=== PATIENT | female | born 1975 | race Caucasian/White ===

== ENCOUNTER 2018-09-23 12:47 | Inpatient (IN) ==
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
[2018-09-23 13:40] LABS: Basophils % 0.2 %; Eosinophils % 0.1 %; Hematocrit 37.2 % (35.3-44.9); Hemoglobin 11.9 g/dL (11.5-15.4); Immature Granulocytes % 0.6 % (0-4); Lymphocytes # 1.3 K/mcL (0.6-4.6); Lymphocytes % 15.3 %; Mean Corpuscular Hemoglobin 27.9 pg (28.0-33.3); Mean Corpuscular Volume 87.1 fL (83.0-100.0); Mean Platelet Volume 10.3 fL (9.4-12.4); Monocytes # 0.4 K/mcL (0.0-1.3); Monocytes % 4.9 %; Neutrophils # 6.6 K/mcL (1.6-8.9); Platelet Count 193 K/mcL (140-400); Red Blood Count 4.27 M/mcL (3.82-4.97); Red Cell Distribution Width 17.5 % (11.5-14.5); Segmented Neutrophils % 78.9 %
[2018-09-23] MEDS ORDERED: 0.9 % Sodium Chloride 1,000 ML IVC ONE ×2 (13:46→14:16)
[2018-09-23 13:48] LABS: Bilirubin,Urine Negative (Negative); Blood,Urine Small (Negative); Clarity,Urine Cloudy (Clear); Color,Urine Yellow (Yellow); Glucose,Urine (UA) Normal (Normal); Ketones,Urine Negative (Negative); Leukocyte Esterase,Urine Large (Negative); Nitrite,Urine Negative (Negative); Protein,Urine 30 mg/dL (Neg-Trace); Specific Gravity,Urine 1.007 (1.010-1.025); Urobilinogen,Urine Normal (Normal)
[2018-09-23 13:49] LABS: INR 1.3; Prothrombin Time 14.9 Seconds (9.4-12.1)
[2018-09-23 13:50] LABS: Bacteria,Urine Many per hpf (None-Few); Squamous Epithelial Cell,Urine Many per lpf (None-Few); WBC,Urine TNTC per hpf (0-3)
[2018-09-23 14:03] LABS: Alanine Aminotransferase < 3 Units/L (7-52); Albumin/Globulin Ratio 0.8 (1.1-2.2); Alkaline Phosphatase 66 Units/L (34-104); Aspartate Amino Transferase 5 Units/L (13-39); BUN/Creatinine Ratio 15 (6-26); Bilirubin,Direct 0.1 mg/dL (0.0-0.2); Bilirubin,Indirect 0.5 mg/dL (0.0-1.2); Bilirubin,Total 0.6 mg/dL (0.3-1.0); Blood Urea Nitrogen 5 mg/dL (6-20); Calcium 8.2 mg/dL (8.6-10.3); Carbon Dioxide 31 mEq/L (23-29); Chloride 96 mEq/L (98-107); Glucose 169 mg/dL (70-105); Osmolality,Calculated 281 (280-300); Potassium 2.7 mEq/L (3.5-5.1); Sodium 135 mEq/L (136-145); eGFR For Non-African Americans > 60 (> 60)
[2018-09-23 14:16] LABS: Amorphous Sediment,Urine Few (Few); RBC,Urine 0-3 per hpf (0-3)
[2018-09-23] MEDS ORDERED: *HR* Promethazine 25 MG/ML VIAL IVP ONE ×2 (14:16→21:54)
[2018-09-23] MEDS ORDERED: Potassium Chloride Elixir 20 MEQ/15 ML UDC PO ONE (14:16)
[2018-09-23] MEDS ORDERED: Ibuprofen 800 MG TABLET PO ONE (14:21)
[2018-09-23] MEDS ORDERED: cefTRIAXone 1,000 MG in Water for inj. (sterile) 20 ML 10 ML IVP ONE (14:39)
--- NOTE | 2018-09-23 14:54 | Emergency Department Note ---
Disposition Clinical Impression: Osteomyelitis, Febrile illness, Decubitus ulcer of ischium, stage 4 Disposition: Admitted As Inpatient Forms: ED Satisfaction Letter General Adult HPI - General Chief complaint: ED Fever Stated complaint: fever for a couple weeks Time Seen by Provider: 09/23/18 12:54 Source: patient, EMS Mode of arrival: EMS Limitations: no limitations - History of Present Illness Pain Scale: 8 - Related Data Home Medications Medication Instructions Recorded Confirmed FLUoxetine HCl [Prozac] 40 mg PO QAM 08/11/15 12/04/16 Warfarin [Coumadin] 6 mg PO DAILY 08/11/15 12/04/16 Promethazine [Phenergan] 12.5 mg PO HS PRN 08/16/15 12/04/16 Sennosides [Senna] 17.2 mg PO DAILY 09/07/15 12/04/16 Albuterol Sulfate [Proair Hfa] 2 puff IH Q4H PRN 10/06/16 12/04/16 Cholecalciferol (Vitamin D3) 2,000 unit PO DAILY 10/06/16 12/04/16 [Vitamin D3] DiphenhydraMINE [Benadryl] 25 mg PO Q6H PRN 10/06/16 12/04/16 EPINEPHrine [Epipen] 0.3 mg IM ONCE PRN 10/06/16 12/04/16 Gabapentin [Neurontin] 600 mg PO TID 10/06/16 12/04/16 Docusate [Colace] 100 mg PO DAILY 11/30/16 12/04/16 Torsemide [Demadex] 20 mg PO BID 11/30/16 12/04/16 diazePAM [Valium] 10 mg PO TID PRN 11/30/16 12/04/16 glipiZIDE [Glipizide] 20 mg PO DAILY 11/30/16 12/04/16 Ampicillin/Sulbactam [Unasyn] 1,500 mg IVPB Q6HR 12/04/16 12/04/16 Oxycodone HCl [Oxaydo] 5 mg PO QID 01/29/17 01/29/17 Oxycodone HCl [Oxaydo] 5 mg PO QID PRN 01/29/17 01/29/17 Previous Rx's Medication Instructions Recorded Budesonide/Formoterol 80/4.5 2 puff IH BIDR inhaler 10/19/16 [Symbicort 80/4.5] Multivit/Ca/Min/Fe/FA [Thera M 1 tab PO DAILY 30 Days tablet 10/19/16 Plus] Nicotine Patch [Nicoderm] 21 mg TD DAILY 30 Days patch.td24 10/19/16 Oxybutynin [Ditropan] 5 mg PO TID 30 Days tablet 10/19/16 HYDROmorphone (PF) [Dilaudid] 0.5 mg IVP Q4HR PRN #0 syringe 10/26/16 Fluconazole [Diflucan] 150 mg PO DAILY #1 tab 10/24/17 Oxycodone HCl/Acetaminophen 1 each PO Q6HR PRN #8 tablet 10/24/17 [Percocet 5-325 mg Tablet] cephALEXin [Keflex] 500 mg PO QID 10 Days capsule 10/24/17 Allergies Allergy/AdvReac Type Severity Reaction Status Date / Time aspirin [ASA] Allergy Intermediate Nose Bleed Verified 07/21/16 20:22 ciprofloxacin [From Cipro] Allergy Hives Verified 06/26/17 12:10 fentanyl Allergy Anxiety Verified 07/21/16 20:22 furosemide [From Lasix] Allergy Cramping Verified 10/12/16 08:10 of the Muscles pregabalin [From Lyrica] Allergy Hives Verified 06/26/17 12:11 Sulfa (Sulfonamide Allergy Diarrhea Verified 07/21/16 20:22 Antibiotics) vancomycin Allergy See Verified 07/21/16 20:22 Comments metformin AdvReac See Verified 12/04/16 14:14 Comments sitagliptin [From Januvia] AdvReac See Verified 12/04/16 14:13 Comments Past Medical History - Past Medical History Medical history: Reports: diabetes, other Surgical history: Reports: other Psychiatric history: Reports: anxiety, bipolar, depression, PTSD - Social History Smoking Status: Current every day smoker Smokeless Tobacco Status: No Alcohol use: Reports: rarely Drug use: Reports: marijuana Physical Exam - General Limitations: no limitations General appearance: alert, in no apparent distress Course Vital Signs Temperature 100.8 F H 09/23/18 13:01 Pulse Rate 117 09/23/18 13:01 Respiratory Rate 18 09/23/18 13:01 Blood Pressure 132/57 09/23/18 13:01 O2 Sat by Pulse Oximetry 100 09/23/18 13:01 Temperature 100.8 F H 09/23/18 13:01 Pulse Rate 117 09/23/18 13:01 Respiratory Rate 18 09/23/18 13:01 Blood Pressure 132/57 09/23/18 13:01 O2 Sat by Pulse Oximetry 100 09/23/18 13:01 Oxygen Delivery Oxygen Delivery Room Air Medical Decision Making - Medical Records Medical records reviewed: Yes I reviewed the patient's medical records. - Lab Data Lab results reviewed: Yes I reviewed the patient's lab results. Result diagrams: 09/23/18 13:03 09/23/18 13:03 Lab Results 09/23/18 09/23/18 09/23/18 Range/Units 13: 13: 13:03 WBC 8.4 (4.3-11.1) K/mcL RBC 4.27 (3.82-4.97) M/mcL Hgb 11.9 (11.5-15.4) g/dL Hct 37.2 (35.3-44.9) % MCV 87.1 (83.0-100.0) fL MCH 27.9 L (28.0-33.3) pg MCHC 32.0 (31.6-35.5) g/dL RDW 17.5 H (11.5-14.5) % Plt Count 193 (140-400) K/mcL MPV 10.3 (9.4-12.4) fL Immature Gran % 0.6 (0-4) % Seg Neutrophils % 78.9 % Lymphocytes % 15.3 % Monocytes % 4.9 % Eosinophils % 0.1 % Basophils % 0.2 % Neutrophils # 6.6 (1.6-8.9) K/mcL Lymphocytes # 1.3 (0.6-4.6) K/mcL Monocytes # 0.4 (0.0-1.3) K/mcL Eosinophils # 0.0 (0.0-0.6) K/mcL Basophils # 0.0 (0.0-0.2) K/mcL PT 14.9 H (9.4-12.1) Seconds INR 1.3 Sodium 135 L (136-145) mEq/L Potassium 2.7 L (3.5-5.1) mEq/L Chloride 96 L (98-107) mEq/L Carbon Dioxide 31 H (23-29) mEq/L BUN 5 L (6-20) mg/dL Creatinine 0.34 L (0.60-1.20) mg/dL Est GFR ( Amer) > 60 (> 60) Est GFR (Non-Af Amer) > 60 (> 60) BUN/Creatinine Ratio 15 (6-26) Glucose 169 H (70-105) mg/dL Calculated Osmolality 281 (280-300) Lactic Acid (0.5-2.2) mmol/L Calcium 8.2 L (8.6-10.3) mg/dL Total Bilirubin 0.6 (0.3-1.0) mg/dL Direct Bilirubin 0.1 (0.0-0.2) mg/dL Indirect Bilirubin 0.5 (0.0-1.2) mg/dL AST 5 L (13-39) Units/L ALT < 3 L (7-52) Units/L Alkaline Phosphatase 66 (34-104) Units/L Serum Total Protein 7.0 (6.4-8.9) g/dL Albumin 3.0 L (3.5-5.7) g/dL Globulin 4.0 H (2.4-3.5) g/dL Albumin/Globulin Ratio 0.8 L (1.1-2.2) Urine Color (Yellow) Urine Clarity (Clear) Urine pH (5.0-8.0) pH Units Ur Specific [place] (1.010-1.025) Urine Protein (Neg-Trace) mg/dL Urine Glucose (UA) (Normal) mg/dL Urine Ketones (Negative) mg/dL Urine Blood (Negative) Urine Nitrite (Negative) Urine Bilirubin (Negative) Urine Urobilinogen (Normal) mg/dL Ur Leukocyte Esterase (Negative) Urine Microscopic RBC (0-3) per hpf Urine Microscopic WBC (0-3) per hpf Ur Squamous Epith Cells (None-Few) per lpf Amorphous Sediment (Few) Urine Bacteria (None-Few) per hpf Hyaline Casts Ur Culture Indicated? (NO) 09/23/18 09/23/18 Range/Units 13:20 13:30 WBC (4.3-11.1) K/mcL RBC (3.82-4.97) M/mcL Hgb (11.5-15.4) g/dL Hct (35.3-44.9) % MCV (83.0-100.0) fL MCH (28.0-33.3) pg MCHC (31.6-35.5) g/dL RDW (11.5-14.5) % Plt Count (140-400) K/mcL MPV (9.4-12.4) fL Immature Gran % (0-4) % Seg Neutrophils % % Lymphocytes % % Monocytes % % Eosinophils % % Basophils % % Neutrophils # (1.6-8.9) K/mcL Lymphocytes # (0.6-4.6) K/mcL Monocytes # (0.0-1.3) K/mcL Eosinophils # (0.0-0.6) K/mcL Basophils # (0.0-0.2) K/mcL PT (9.4-12.1) Seconds INR Sodium (136-145) mEq/L Potassium (3.5-5.1) mEq/L Chloride (98-107) mEq/L Carbon Dioxide (23-29) mEq/L BUN (6-20) mg/dL Creatinine (0.60-1.20) mg/dL Est GFR ( Amer) (> 60) Est GFR (Non-Af Amer) (> 60) BUN/Creatinine Ratio (6-26) Glucose (70-105) mg/dL Calculated Osmolality (280-300) Lactic Acid 1.9 (0.5-2.2) mmol/L Calcium (8.6-10.3) mg/dL Total Bilirubin (0.3-1.0) mg/dL Direct Bilirubin (0.0-0.2) mg/dL Indirect Bilirubin (0.0-1.2) mg/dL AST (13-39) Units/L ALT (7-52) Units/L Alkaline Phosphatase (34-104) Units/L Serum Total Protein (6.4-8.9) g/dL Albumin (3.5-5.7) g/dL Globulin (2.4-3.5) g/dL Albumin/Globulin Ratio (1.1-2.2) Urine Color Yellow (Yellow) Urine Clarity Cloudy A (Clear) Urine pH 8.0 (5.0-8.0) pH Units Ur Specific [place] 1.007 L (1.010-1.025) Urine Protein 30 H (Neg-Trace) mg/dL Urine Glucose (UA) Normal (Normal) mg/dL Urine Ketones Negative (Negative) mg/dL Urine Blood Small H (Negative) Urine Nitrite Negative (Negative) Urine Bilirubin Negative (Negative) Urine Urobilinogen Normal (Normal) mg/dL Ur Leukocyte Esterase Large H (Negative) Urine Microscopic RBC 0-3 (0-3) per hpf Urine Microscopic WBC TNTC H (0-3) per hpf Ur Squamous Epith Cells Many H (None-Few) per lpf Amorphous Sediment Few (Few) Urine Bacteria Many H (None-Few) per hpf Hyaline Casts Test Not Performed Ur Culture Indicated? NO. A (NO) - Radiology Data Radiology results reviewed: Yes I reviewed the patient's radiology results. Critical Care Time Critical Care Time: Yes Total Critical Care Time: 35 Attestation: 35 minutes of critical care time spent in medical management of possible sepsis, osteomyelitis, and concerns for possible rectal fistula. Attestation Statement - Attestation Attestation: I examined this patient and my medical decision-making was reviewed with the Resident Physician. I agree with the documented findings, disposition and treatment plan as described except to the extent set forth below. 43 yo F here for generalized illness. Patient has been complaining of some diarrhea and nausea as well as fevers. States she has had intermittent fevers times one month. She does have a chronic suprapubic catheter. She does have evidence of urinary tract infection which is likely chronically infected. She spiked a temp here greater than 103. Workup revealed on the CT scan is significant decubitus ulcers it appears to have caused a reactive adjacent osteomyelitis of the right acetabular and right iliac region. We have attempted to treat her fever here with Tylenol and ibuprofen. We have given her IV fluids. We will consult with or throat as well as with the hospitalist. Patient will need to be admitted. We will order some broad- spectrum antibiotics. She has no white count elevation. Normal lactate. Blood pressures are normal.
[2018-09-23] MEDS ORDERED: Piperacillin/Tazobactam 3.375 GM in 0.9 % Sodium Chloride Mini Bag 100 ML IVPB ONE (14:57)
[2018-09-23] MEDS ORDERED: Naloxone 0.4 MG/ML INJ IVP PRN (16:25)
[2018-09-23] MEDS ORDERED: D5% in Water 1,000 ML IVC PRN (16:29)
[2018-09-23] MEDS ORDERED: *HR* Dextrose 50 % in Water (Syg) 50 ML SYRINGE IVP PRN (16:29)
[2018-09-23] MEDS ORDERED: Dextrose Gel 15 GM/37.5 ML TUBE PO PRN ×2 (16:29)
[2018-09-23] MEDS ORDERED: D5% in 0.9% NACL 1,000 ML IVC SCH (16:30)
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
[2018-09-23 17:42] LABS: Estimated Average Glucose 174 mg/dl; Hemoglobin A1C 7.7 %
[2018-09-23] MEDS: DAPTOmycin 500 MG in 0.9 % Sodium Chloride 100 ML IVPB SCH (17:46)
[2018-09-23 20:21] LABS: Bilirubin,Urine Negative (Negative); Blood,Urine Moderate (Negative); Clarity,Urine Cloudy (Clear); Color,Urine Yellow (Yellow); Glucose,Urine (UA) Normal (Normal); Ketones,Urine Negative (Negative); Leukocyte Esterase,Urine Large (Negative); Nitrite,Urine Positive (Negative); Protein,Urine 30 mg/dL (Neg-Trace); Specific Gravity,Urine 1.016 (1.010-1.025); Urobilinogen,Urine Normal (Normal)
[2018-09-23] MEDS: *HR* Heparin 5,000 UNIT/ML VIAL SQ SCH (20:25)
[2018-09-23] MEDS: Insulin DETEMIR 100 UNIT/ML X5UNITS SQ SCH (20:25)
[2018-09-23 20:27] LABS: Bacteria,Urine Many per hpf (None-Few); Hyaline Casts,Urine None Seen per lpf (None-Few); RBC,Urine 15-30 per hpf (0-3); Squamous Epithelial Cell,Urine Moderate per lpf (None-Few); WBC,Urine TNTC per hpf (0-3)
[2018-09-23] MEDS: D5% in 0.9% NACL 1,000 ML IVC SCH (20:36)
[2018-09-23] MEDS: Acetaminophen 325 MG TABLET PO PRN (21:27)
[2018-09-24] MEDS: Gabapentin 400 MG CAPSULE PO SCH ×4 (01:43→20:08)
[2018-09-24] MEDS: Insulin LISPRO 300 UNITS/3 ML VIAL SQ SCH ×7 (01:45→16:08)
[2018-09-24] MEDS: Piperacillin/Tazobactam 3.375 GM in 0.9 % Sodium Chloride Mini Bag 100 ML IVPB SCH ×4 (01:46→23:35)
[2018-09-24] MEDS ORDERED: *HR* Promethazine 25 MG/ML VIAL IVP ONE (04:06)
[2018-09-24 05:16] LABS: Hematocrit 31.1 % (35.3-44.9); Mean Corpuscular HGB Conc 31.5 g/dL (31.6-35.5); Mean Corpuscular Hemoglobin 27.9 pg (28.0-33.3); Mean Corpuscular Volume 88.6 fL (83.0-100.0); Mean Platelet Volume 10.4 fL (9.4-12.4); Platelet Count 144 K/mcL (140-400); Red Blood Count 3.51 M/mcL (3.82-4.97); Red Cell Distribution Width 17.7 % (11.5-14.5)
[2018-09-24 05:17] LABS: Hemoglobin 9.8 g/dL (11.5-15.4)
[2018-09-24 05:38] LABS: BUN/Creatinine Ratio 23 (6-26); Blood Urea Nitrogen 6 mg/dL (6-20); Calcium 7.4 mg/dL (8.6-10.3); Carbon Dioxide 27 mEq/L (23-29); Chloride 107 mEq/L (98-107); Chol/HDL Ratio 7.1 (0-4.9); Cholesterol 113 mg/dL (< 200); Glucose 182 mg/dL (70-105); HDL Cholesterol 16 mg/dL (40-59); LDL Cholesterol,Calculated 68 mg/dL (0-99); Osmolality,Calculated 292 (280-300); Phosphorous 1.3 mg/dL (2.7-4.5); Potassium 3.2 mEq/L (3.5-5.1); Sodium 140 mEq/L (136-145); Triglycerides 147 mg/dL (< 150); eGFR For Non-African Americans > 60 (> 60)
[2018-09-24] MEDS: D5% in 0.9% NACL 1,000 ML IVC SCH ×3 (05:46→15:21)
[2018-09-24] MEDS: *HR* Heparin 5,000 UNIT/ML VIAL SQ SCH ×2 (05:48→17:53)
[2018-09-24] MEDS: traMADol 50 MG TABLET PO PRN ×2 (05:56→11:06)
[2018-09-24 08:27] LABS: Acinetobacter baumannii by PCR Not Detected (Not Detect); Candida albicans by PCR Not Detected (Not Detect); Candida glabrata by PCR Not Detected (Not Detect); Candida krusei by PCR Not Detected (Not Detect); Candida parapsilosis by PCR Not Detected (Not Detect); Candida tropicalis by PCR Not Detected (Not Detect); Enterobacter cloacae Cmplx PCR Not Detected (Not Detect); Enterobacteriaceae by PCR DETECTED (Not Detect); Enterococcus by PCR Not Detected (Not Detect); Escherichia coli by PCR Not Detected (Not Detect); Klebsiella oxytoca by PCR Not Detected (Not Detect); Klebsiella pneumoniae by PCR Not Detected (Not Detect); Proteus by PCR DETECTED (Not Detect); Pseudomonas aeruginosa by PCR Not Detected (Not Detect); Serratia marcescens by PCR Not Detected (Not Detect); Staphylococcus aureus by PCR Not Detected (Not Detect); Staphylococcus by PCR Not Detected (Not Detect); Streptococcus agalactiae(B)PCR Not Detected (Not Detect); Streptococcus by PCR Not Detected (Not Detect); Streptococcus pneumoniae PCR Not Detected (Not Detect); Streptococcus pyogenes (A) PCR Not Detected (Not Detect); blaKPC Carbapenem-Resist Gene Not Detected (Not Detect); mecA Methicillin-Resist Gene Not Detected (Not Detect); vanA/B Vancomycin-Resist Genes Not Detected (Not Detect)
[2018-09-24] MEDS ORDERED: *HR* Promethazine 25 MG/ML VIAL IVP STA (09:15)
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
[2018-09-24 11:24] LABS: Creatine Kinase 19 Units/L (30-223)
[2018-09-24] MEDS: Acetaminophen 325 MG TABLET PO PRN ×2 (11:34→20:18)
[2018-09-24] MEDS ORDERED: Ketorolac 30 MG/ML VIAL IVP ONE (12:25)
[2018-09-24] MEDS ORDERED: Potassium Chloride 40 MEQ, Lidocaine 1% 2 ML in D5% in Water 500 ML IVPB ONE (12:50)
[2018-09-24] MEDS: FLUoxetine 20 MG CAPSULE PO SCH (14:05)
[2018-09-24] MEDS: Multivit/Ca/Min/Fe/FA 1 TAB TABLET PO SCH (14:06)
[2018-09-24] MEDS: Zinc Sulfate 220 MG CAPSULE PO SCH (14:07)
[2018-09-24] MEDS: DAPTOmycin 500 MG in 0.9 % Sodium Chloride 100 ML IVPB SCH (16:07)
[2018-09-24] MEDS: Ascorbic Acid 500 MG TABLET PO SCH (16:08)
[2018-09-24] MEDS ORDERED: Ketorolac 30 MG/ML VIAL IVP STA (17:20)
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
[2018-09-24] MEDS ORDERED: *HR* Warfarin 5 MG TABLET PO ONE (18:00)
[2018-09-24] MEDS ORDERED: Warfarin perPT PO PRN (18:00)
[2018-09-24] MEDS: Nystatin POWDER 30 GM BOTTLE TP SCH (20:09)
[2018-09-24] MEDS: Insulin DETEMIR 100 UNIT/ML X5UNITS SQ SCH (20:39)
[2018-09-25] MEDS: traMADol 50 MG TABLET PO PRN ×3 (02:11→22:15)
[2018-09-25] MEDS: *HR* Heparin 5,000 UNIT/ML VIAL SQ SCH ×2 (04:54→17:43)
[2018-09-25 05:22] LABS: INR 1.2; Prothrombin Time 13.9 Seconds (9.4-12.1)
[2018-09-25] MEDS: D5% in 0.9% NACL 1,000 ML IVC SCH (06:26)
[2018-09-25] MEDS: Nystatin POWDER 30 GM BOTTLE TP SCH ×2 (06:33→22:15)
[2018-09-25 08:58] LABS: Basophils % 0.2 %; Eosinophils % 0.7 %; Hematocrit 33.4 % (35.3-44.9); Hemoglobin 10.5 g/dL (11.5-15.4); Immature Granulocytes % 0.5 % (0-4); Lymphocytes # 0.8 K/mcL (0.6-4.6); Lymphocytes % 13.3 %; Mean Corpuscular HGB Conc 31.4 g/dL (31.6-35.5); Mean Corpuscular Hemoglobin 27.3 pg (28.0-33.3); Mean Corpuscular Volume 86.8 fL (83.0-100.0); Mean Platelet Volume 10.9 fL (9.4-12.4); Monocytes # 0.4 K/mcL (0.0-1.3); Monocytes % 6.1 %; Neutrophils # 4.7 K/mcL (1.6-8.9); Platelet Count 160 K/mcL (140-400); Red Blood Count 3.85 M/mcL (3.82-4.97); Red Cell Distribution Width 17.8 % (11.5-14.5); Segmented Neutrophils % 79.2 %
[2018-09-25 09:16] LABS: BUN/Creatinine Ratio 19 (6-26); Blood Urea Nitrogen 5 mg/dL (6-20); Carbon Dioxide 23 mEq/L (23-29); Chloride 107 mEq/L (98-107); Glucose 139 mg/dL (70-105); Osmolality,Calculated 286 (280-300); Potassium 3.1 mEq/L (3.5-5.1); Sodium 138 mEq/L (136-145); eGFR For Non-African Americans > 60 (> 60)
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
[2018-09-25] MEDS: Insulin LISPRO 300 UNITS/3 ML VIAL SQ SCH ×6 (10:37→15:47)
[2018-09-25] MEDS: Gabapentin 400 MG CAPSULE PO SCH ×3 (10:40→22:16)
[2018-09-25] MEDS: FLUoxetine 20 MG CAPSULE PO SCH (10:41)
[2018-09-25] MEDS: Sennosides 8.6 MG TABLET PO SCH (10:41)
[2018-09-25] MEDS: Ascorbic Acid 500 MG TABLET PO SCH ×2 (10:41→17:45)
[2018-09-25] MEDS: Cholecalciferol (D-3) 1,000 UNIT TABLET PO SCH (10:42)
[2018-09-25] MEDS: Multivit/Ca/Min/Fe/FA 1 TAB TABLET PO SCH (10:42)
[2018-09-25] MEDS: Zinc Sulfate 220 MG CAPSULE PO SCH (10:42)
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
[2018-09-25] MEDS: Piperacillin/Tazobactam 3.375 GM in 0.9 % Sodium Chloride Mini Bag 100 ML IVPB SCH ×2 (11:07→17:42)
[2018-09-25 11:18] LABS: Alanine Aminotransferase 3 Units/L (7-52); Albumin 2.7 g/dL (3.5-5.7); Albumin/Globulin Ratio 0.7 (1.1-2.2); Alkaline Phosphatase 67 Units/L (34-104); Amylase 20 Units/L (29-103); Aspartate Amino Transferase 6 Units/L (13-39); Bilirubin,Direct 0.1 mg/dL (0.0-0.2); Bilirubin,Indirect 0.3 mg/dL (0.0-1.2); Bilirubin,Total 0.4 mg/dL (0.3-1.0); Globulin 3.8 g/dL (2.4-3.5); Lipase 19 Units/L (11-82); Total Protein 6.5 g/dL (6.4-8.9)
[2018-09-25] MEDS: Ketorolac 30 MG/ML VIAL IVP SCH ×2 (12:48→17:47)
[2018-09-25] MEDS ORDERED: Potassium Chloride 40 MEQ, Lidocaine 1% 2 ML in D5% in Water 500 ML IVPB ONE (13:13)
[2018-09-25] MEDS: DAPTOmycin 500 MG in 0.9 % Sodium Chloride 100 ML IVPB SCH (14:30)
[2018-09-25] MEDS: *HR* Promethazine 25 MG/ML VIAL IVP PRN (17:43)
[2018-09-25] MEDS: OXYCODONE Oral CONC 10 MG/0.5 ML ORAL.SYG SL PRN (17:44)
[2018-09-25] MEDS: Nicotine 21 MG PATCH.TD24 TD SCH (17:46)
[2018-09-25] MEDS ORDERED: *HR* Warfarin 3 MG TABLET PO ONE (18:00)
[2018-09-25 18:34] LABS: Alanine Aminotransferase < 3 Units/L (7-52); Albumin 2.5 g/dL (3.5-5.7); Albumin/Globulin Ratio 0.8 (1.1-2.2); Alkaline Phosphatase 57 Units/L (34-104); Aspartate Amino Transferase 5 Units/L (13-39); Bilirubin,Direct 0.1 mg/dL (0.0-0.2); Bilirubin,Indirect 0.2 mg/dL (0.0-1.2); Bilirubin,Total 0.3 mg/dL (0.3-1.0); Globulin 3.2 g/dL (2.4-3.5); Total Protein 5.7 g/dL (6.4-8.9)
[2018-09-25] MEDS ORDERED: Gadolinium Contrast Agent (WT Based) IV PRN (19:30)
[2018-09-25] MEDS: diazePAM 5 MG TABLET PO PRN (22:15)
[2018-09-25] MEDS: Insulin DETEMIR 100 UNIT/ML X5UNITS SQ SCH (22:16)
[2018-09-26] MEDS: Piperacillin/Tazobactam 3.375 GM in 0.9 % Sodium Chloride Mini Bag 100 ML IVPB SCH ×3 (00:06→17:20)
[2018-09-26] MEDS: Ketorolac 30 MG/ML VIAL IVP SCH ×4 (00:07→16:51)
[2018-09-26] MEDS: *HR* Promethazine 25 MG/ML VIAL IVP PRN ×2 (00:15→17:45)
[2018-09-26] MEDS: *HR* Heparin 5,000 UNIT/ML VIAL SQ SCH ×2 (06:53→16:51)
[2018-09-26 07:14] LABS: INR 1.2
[2018-09-26] MEDS: Insulin LISPRO 300 UNITS/3 ML VIAL SQ SCH ×6 (08:16→16:45)
[2018-09-26] MEDS: Sennosides 8.6 MG TABLET PO SCH (08:24)
[2018-09-26] MEDS: Cholecalciferol (D-3) 1,000 UNIT TABLET PO SCH (08:25)
[2018-09-26] MEDS: Zinc Sulfate 220 MG CAPSULE PO SCH (08:25)
[2018-09-26] MEDS: Multivit/Ca/Min/Fe/FA 1 TAB TABLET PO SCH (08:25)
[2018-09-26] MEDS: Ascorbic Acid 500 MG TABLET PO SCH ×2 (08:26→16:51)
[2018-09-26] MEDS: Gabapentin 400 MG CAPSULE PO SCH ×3 (08:48→21:09)
[2018-09-26] MEDS: FLUoxetine 20 MG CAPSULE PO SCH (08:48)
[2018-09-26] MEDS: Nicotine 21 MG PATCH.TD24 TD SCH (08:48)
[2018-09-26] MEDS: Nystatin POWDER 30 GM BOTTLE TP SCH ×2 (08:51→21:08)
[2018-09-26] MEDS: OXYCODONE Oral CONC 10 MG/0.5 ML ORAL.SYG SL PRN ×2 (09:12→21:10)
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
[2018-09-26] MEDS: *HR* Warfarin 3 MG TABLET PO SCH (16:51)
[2018-09-26] MEDS: DAPTOmycin 500 MG in 0.9 % Sodium Chloride 100 ML IVPB SCH (17:37)
[2018-09-26] MEDS: Insulin DETEMIR 100 UNIT/ML X5UNITS SQ SCH (21:09)
[2018-09-27] MEDS: Ketorolac 30 MG/ML VIAL IVP SCH ×4 (00:49→17:04)
[2018-09-27] MEDS: Piperacillin/Tazobactam 3.375 GM in 0.9 % Sodium Chloride Mini Bag 100 ML IVPB SCH ×3 (00:49→17:03)
[2018-09-27] MEDS: OXYCODONE Oral CONC 10 MG/0.5 ML ORAL.SYG SL PRN ×4 (03:19→21:36)
[2018-09-27 05:18] LABS: Basophils % 0.5 %; Eosinophils # 0.2 K/mcL (0.0-0.6); Eosinophils % 5.4 %; Hemoglobin 9.8 g/dL (11.5-15.4); Immature Granulocytes % 0.7 % (0-4); Lymphocytes # 0.7 K/mcL (0.6-4.6); Lymphocytes % 15.9 %; Mean Corpuscular HGB Conc 31.6 g/dL (31.6-35.5); Mean Corpuscular Hemoglobin 27.3 pg (28.0-33.3); Mean Corpuscular Volume 86.4 fL (83.0-100.0); Mean Platelet Volume 10.2 fL (9.4-12.4); Monocytes # 0.3 K/mcL (0.0-1.3); Monocytes % 5.8 %; Neutrophils # 3.1 K/mcL (1.6-8.9); Platelet Count 156 K/mcL (140-400); Red Blood Count 3.59 M/mcL (3.82-4.97); Red Cell Distribution Width 17.9 % (11.5-14.5); Segmented Neutrophils % 71.7 %
[2018-09-27 05:26] LABS: INR 1.4; Prothrombin Time 15.9 Seconds (9.4-12.1)
[2018-09-27 05:32] LABS: BUN/Creatinine Ratio 12 (6-26); Blood Urea Nitrogen 3 mg/dL (6-20); Calcium 7.7 mg/dL (8.6-10.3); Carbon Dioxide 25 mEq/L (23-29); Chloride 107 mEq/L (98-107); Glucose 141 mg/dL (70-105); Osmolality,Calculated 287 (280-300); Potassium 3.1 mEq/L (3.5-5.1); Sodium 139 mEq/L (136-145); eGFR For Non-African Americans > 60 (> 60)
[2018-09-27] MEDS: *HR* Promethazine 25 MG/ML VIAL IVP PRN ×3 (05:58→20:31)
[2018-09-27] MEDS: *HR* Heparin 5,000 UNIT/ML VIAL SQ SCH ×2 (05:58→17:04)
[2018-09-27] MEDS: Cholecalciferol (D-3) 1,000 UNIT TABLET PO SCH (08:36)
[2018-09-27] MEDS: Gabapentin 400 MG CAPSULE PO SCH ×3 (08:37→23:22)
[2018-09-27] MEDS: Multivit/Ca/Min/Fe/FA 1 TAB TABLET PO SCH (08:37)
[2018-09-27] MEDS: Ascorbic Acid 500 MG TABLET PO SCH ×2 (08:37→17:05)
[2018-09-27] MEDS: Zinc Sulfate 220 MG CAPSULE PO SCH (08:37)
[2018-09-27] MEDS: FLUoxetine 20 MG CAPSULE PO SCH (08:38)
[2018-09-27] MEDS: Sennosides 8.6 MG TABLET PO SCH (08:38)
[2018-09-27] MEDS: Nicotine 21 MG PATCH.TD24 TD SCH (08:38)
[2018-09-27] MEDS: Insulin LISPRO 300 UNITS/3 ML VIAL SQ SCH ×5 (08:39→17:01)
[2018-09-27] MEDS: Nystatin POWDER 30 GM BOTTLE TP SCH (08:40)
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
[2018-09-27] MEDS: DAPTOmycin 500 MG in 0.9 % Sodium Chloride 100 ML IVPB SCH (14:57)
[2018-09-27] MEDS: *HR* Warfarin 3 MG TABLET PO SCH (17:04)
[2018-09-27] MEDS ORDERED: Simethicone 80 MG TAB.CHEW PO PRN (21:19)
[2018-09-28] MEDS: Ketorolac 30 MG/ML VIAL IVP SCH ×4 (00:05→18:14)
[2018-09-28] MEDS: Piperacillin/Tazobactam 3.375 GM in 0.9 % Sodium Chloride Mini Bag 100 ML IVPB SCH ×3 (00:06→18:03)
[2018-09-28] MEDS: OXYCODONE Oral CONC 10 MG/0.5 ML ORAL.SYG SL PRN ×3 (03:50→18:15)
[2018-09-28] MEDS: *HR* Promethazine 25 MG/ML VIAL IVP PRN ×2 (03:51→09:26)
[2018-09-28] MEDS: Nystatin POWDER 30 GM BOTTLE TP SCH ×3 (04:22→20:28)
[2018-09-28 05:58] LABS: INR 1.6; Prothrombin Time 18.2 Seconds (9.4-12.1)
[2018-09-28] MEDS: *HR* Heparin 5,000 UNIT/ML VIAL SQ SCH ×2 (06:02→18:14)
[2018-09-28] MEDS: FLUoxetine 20 MG CAPSULE PO SCH (09:01)
[2018-09-28] MEDS: Zinc Sulfate 220 MG CAPSULE PO SCH (09:01)
[2018-09-28] MEDS: Gabapentin 400 MG CAPSULE PO SCH ×3 (09:01→20:28)
[2018-09-28] MEDS: Cholecalciferol (D-3) 1,000 UNIT TABLET PO SCH (09:02)
[2018-09-28] MEDS: Insulin LISPRO 300 UNITS/3 ML VIAL SQ SCH ×3 (09:02→20:29)
[2018-09-28] MEDS: Sennosides 8.6 MG TABLET PO SCH (09:02)
[2018-09-28] MEDS: Multivit/Ca/Min/Fe/FA 1 TAB TABLET PO SCH (09:02)
[2018-09-28] MEDS: Nicotine 21 MG PATCH.TD24 TD SCH (09:03)
[2018-09-28] MEDS: Ascorbic Acid 500 MG TABLET PO SCH ×2 (09:10→18:14)
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
[2018-09-28 12:35] LABS: Basophils % 0.3 %; Eosinophils # 0.2 K/mcL (0.0-0.6); Eosinophils % 5.4 %; Hemoglobin 9.6 g/dL (11.5-15.4); Immature Granulocytes % 1.1 % (0-4); Lymphocytes # 0.8 K/mcL (0.6-4.6); Lymphocytes % 22.3 %; Mean Corpuscular Hemoglobin 27.6 pg (28.0-33.3); Mean Corpuscular Volume 86.2 fL (83.0-100.0); Mean Platelet Volume 9.8 fL (9.4-12.4); Monocytes # 0.3 K/mcL (0.0-1.3); Monocytes % 7.2 %; Neutrophils # 2.4 K/mcL (1.6-8.9); Platelet Count 156 K/mcL (140-400); Red Blood Count 3.48 M/mcL (3.82-4.97); Red Cell Distribution Width 17.7 % (11.5-14.5); Segmented Neutrophils % 63.7 %
[2018-09-28 12:54] LABS: BUN/Creatinine Ratio 9 (6-26); Blood Urea Nitrogen 3 mg/dL (6-20); Calcium 7.7 mg/dL (8.6-10.3); Carbon Dioxide 27 mEq/L (23-29); Chloride 106 mEq/L (98-107); Glucose 176 mg/dL (70-105); Osmolality,Calculated 289 (280-300); Potassium 2.8 mEq/L (3.5-5.1); Sodium 139 mEq/L (136-145); eGFR For Non-African Americans > 60 (> 60)
[2018-09-28] MEDS: DAPTOmycin 500 MG in 0.9 % Sodium Chloride 100 ML IVPB SCH (18:09)
[2018-09-28] MEDS: *HR* Warfarin 3 MG TABLET PO SCH (18:14)
[2018-09-28] MEDS: traMADol 50 MG TABLET PO PRN (20:28)
[2018-09-29] MEDS: Ketorolac 30 MG/ML VIAL IVP SCH ×4 (00:06→18:32)
[2018-09-29] MEDS: Piperacillin/Tazobactam 3.375 GM in 0.9 % Sodium Chloride Mini Bag 100 ML IVPB SCH ×3 (00:07→16:22)
[2018-09-29] MEDS: *HR* Promethazine 25 MG/ML VIAL IVP PRN ×2 (01:10→20:14)
[2018-09-29] MEDS: OXYCODONE Oral CONC 10 MG/0.5 ML ORAL.SYG SL PRN ×4 (02:50→23:01)
[2018-09-29 04:42] LABS: INR 2.1; Prothrombin Time 23.4 Seconds (9.4-12.1)
[2018-09-29] MEDS: *HR* Heparin 5,000 UNIT/ML VIAL SQ SCH ×2 (05:58→17:33)
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
[2018-09-29] MEDS: Nicotine 21 MG PATCH.TD24 TD SCH (09:10)
[2018-09-29] MEDS: Gabapentin 400 MG CAPSULE PO SCH ×3 (09:10→20:14)
[2018-09-29] MEDS: FLUoxetine 20 MG CAPSULE PO SCH (09:10)
[2018-09-29] MEDS: Insulin LISPRO 300 UNITS/3 ML VIAL SQ SCH ×3 (09:13→17:33)
[2018-09-29 09:17] LABS: Basophils % 0.2 %; Eosinophils # 0.3 K/mcL (0.0-0.6); Eosinophils % 5.9 %; Hematocrit 32.1 % (35.3-44.9); Immature Granulocytes % 1.4 % (0-4); Lymphocytes # 1.2 K/mcL (0.6-4.6); Lymphocytes % 27.7 %; Mean Corpuscular HGB Conc 31.2 g/dL (31.6-35.5); Mean Corpuscular Hemoglobin 27.5 pg (28.0-33.3); Mean Corpuscular Volume 88.2 fL (83.0-100.0); Mean Platelet Volume 10.2 fL (9.4-12.4); Monocytes # 0.3 K/mcL (0.0-1.3); Monocytes % 6.9 %; Neutrophils # 2.4 K/mcL (1.6-8.9); Platelet Count 187 K/mcL (140-400); Red Blood Count 3.64 M/mcL (3.82-4.97); Red Cell Distribution Width 18.3 % (11.5-14.5); Segmented Neutrophils % 57.9 %
[2018-09-29] MEDS: Nystatin POWDER 30 GM BOTTLE TP SCH ×2 (09:20→20:14)
[2018-09-29] MEDS: Ascorbic Acid 500 MG TABLET PO SCH ×2 (09:20→16:27)
[2018-09-29] MEDS: Zinc Sulfate 220 MG CAPSULE PO SCH (09:21)
[2018-09-29] MEDS: Cholecalciferol (D-3) 1,000 UNIT TABLET PO SCH (09:21)
[2018-09-29] MEDS: Multivit/Ca/Min/Fe/FA 1 TAB TABLET PO SCH (09:21)
[2018-09-29] MEDS: Sennosides 8.6 MG TABLET PO SCH (09:21)
[2018-09-29 09:35] LABS: BUN/Creatinine Ratio 17 (6-26); Blood Urea Nitrogen 6 mg/dL (6-20); Calcium 8.2 mg/dL (8.6-10.3); Carbon Dioxide 29 mEq/L (23-29); Chloride 108 mEq/L (98-107); Glucose 134 mg/dL (70-105); Osmolality,Calculated 296 (280-300); Potassium 2.7 mEq/L (3.5-5.1); Sodium 143 mEq/L (136-145); eGFR For Non-African Americans > 60 (> 60)
[2018-09-29 09:41] LABS: Platelet Estimate Normal (Normal); Reactive Lymphocytes Present (Not Present)
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
[2018-09-29] MEDS: DAPTOmycin 500 MG in 0.9 % Sodium Chloride 100 ML IVPB SCH (16:27)
[2018-09-29] MEDS ORDERED: *HR* Warfarin 3 MG TABLET PO ONE (18:00)
[2018-09-29 22:58] LABS: BUN/Creatinine Ratio 23 (6-26); Blood Urea Nitrogen 6 mg/dL (6-20); Calcium 8.4 mg/dL (8.6-10.3); Carbon Dioxide 26 mEq/L (23-29); Chloride 106 mEq/L (98-107); Glucose 170 mg/dL (70-105); Osmolality,Calculated 292 (280-300); Potassium 2.4 mEq/L (3.5-5.1); Sodium 140 mEq/L (136-145); eGFR For Non-African Americans > 60 (> 60)
[2018-09-29] MEDS ORDERED: Potassium Chloride 40 MEQ, Lidocaine 1% 2 ML in D5% in Water 500 ML IVPB ONE (23:02)
[2018-09-30] MEDS: Ketorolac 30 MG/ML VIAL IVP SCH ×3 (00:39→12:26)
[2018-09-30] MEDS: Piperacillin/Tazobactam 3.375 GM in 0.9 % Sodium Chloride Mini Bag 100 ML IVPB SCH ×3 (00:39→16:07)
[2018-09-30 04:11] LABS: Basophils % 0.4 %; Eosinophils # 0.2 K/mcL (0.0-0.6); Eosinophils % 4.2 %; Hematocrit 29.5 % (35.3-44.9); Hemoglobin 9.5 g/dL (11.5-15.4); Immature Granulocytes % 0.9 % (0-4); Lymphocytes # 1.8 K/mcL (0.6-4.6); Lymphocytes % 40.2 %; Mean Corpuscular HGB Conc 32.2 g/dL (31.6-35.5); Mean Corpuscular Hemoglobin 27.9 pg (28.0-33.3); Mean Corpuscular Volume 86.8 fL (83.0-100.0); Mean Platelet Volume 10.2 fL (9.4-12.4); Monocytes # 0.3 K/mcL (0.0-1.3); Monocytes % 7.1 %; Neutrophils # 2.1 K/mcL (1.6-8.9); Platelet Count 199 K/mcL (140-400); Red Cell Distribution Width 18.3 % (11.5-14.5); Segmented Neutrophils % 47.2 %
[2018-09-30 04:21] LABS: Prothrombin Time 23.1 Seconds (9.4-12.1)
[2018-09-30 04:30] LABS: Platelet Estimate Normal (Normal)
[2018-09-30 04:31] LABS: Anisocytosis 1+ (Not Present); Hypochromasia Present (Not Present); Reactive Lymphocytes Present (Not Present)
[2018-09-30 04:33] LABS: BUN/Creatinine Ratio 22 (6-26); Blood Urea Nitrogen 5 mg/dL (6-20); Calcium 8.2 mg/dL (8.6-10.3); Carbon Dioxide 26 mEq/L (23-29); Chloride 108 mEq/L (98-107); Glucose 147 mg/dL (70-105); Osmolality,Calculated 294 (280-300); Potassium 3.1 mEq/L (3.5-5.1); Sodium 142 mEq/L (136-145); eGFR For Non-African Americans > 60 (> 60)
[2018-09-30] MEDS: *HR* Heparin 5,000 UNIT/ML VIAL SQ SCH (05:54)
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
[2018-09-30 09:30] LABS: VBG Ionized Calcium 1.16 mmol/L (1.15-1.35)
[2018-09-30] MEDS: Insulin LISPRO 300 UNITS/3 ML VIAL SQ SCH ×3 (10:16→17:02)
[2018-09-30] MEDS: Sennosides 8.6 MG TABLET PO SCH (10:32)
[2018-09-30] MEDS: Cholecalciferol (D-3) 1,000 UNIT TABLET PO SCH (10:32)
[2018-09-30] MEDS: FLUoxetine 20 MG CAPSULE PO SCH (10:33)
[2018-09-30] MEDS: Ascorbic Acid 500 MG TABLET PO SCH ×2 (10:33→16:07)
[2018-09-30] MEDS: Zinc Sulfate 220 MG CAPSULE PO SCH (10:33)
[2018-09-30] MEDS: Gabapentin 400 MG CAPSULE PO SCH ×3 (10:33→21:41)
[2018-09-30] MEDS: Nicotine 21 MG PATCH.TD24 TD SCH (10:34)
[2018-09-30] MEDS: Multivit/Ca/Min/Fe/FA 1 TAB TABLET PO SCH (10:38)
[2018-09-30] MEDS: OXYCODONE Oral CONC 10 MG/0.5 ML ORAL.SYG SL PRN ×2 (10:45→21:48)
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
--- NOTE | 2018-09-30 11:34 | IR Progress Note ---
Vital Signs: Vital Signs/O2 Sat, Most Current Temp Pulse Resp BP Pulse Ox 97.6 F 78 15 125/76 97 09/30/18 06:47 09/30/18 06:47 09/30/18 06:47 09/30/18 06:47 09/30/18 06:47 Recent Labs: Lab Results 09/30/18 09/30/18 09/29/18 03:50 03:50 22:28 WBC 4.5 RBC 3.40 L Hgb 9.5 L Hct 29.5 L MCV 86.8 MCH 27.9 L MCHC 32.2 RDW 18.3 H Plt Count 199 MPV 10.2 Neutrophils # 2.1 Lymphocytes # 1.8 Monocytes # 0.3 Eosinophils # 0.2 Basophils # 0.0 Sodium 142 140 Potassium 3.1 L D 2.4 L* Chloride 108 H 106 Carbon Dioxide 26 26 BUN 5 L 6 Creatinine 0.23 L 0.26 L Est GFR ( Amer) > 60 > 60 Est GFR (Non-Af Amer) > 60 > 60 BUN/Creatinine Ratio 22 23 Glucose 147 H 170 H Lactic Acid Calcium 8.2 L 8.4 L 09/29/18 09/29/18 09/28/18 08:38 08:38 12:26 WBC 4.2 L RBC 3.64 L Hgb 10.0 L Hct 32.1 L MCV 88.2 MCH 27.5 L MCHC 31.2 L RDW 18.3 H Plt Count 187 MPV 10.2 Neutrophils # 2.4 Lymphocytes # 1.2 Monocytes # 0.3 Eosinophils # 0.3 Basophils # 0.0 Sodium 143 139 Potassium 2.7 L 2.8 L Chloride 108 H 106 Carbon Dioxide 29 27 BUN 6 3 L Creatinine 0.36 L 0.35 L Est GFR ( Amer) > 60 > 60 Est GFR (Non-Af Amer) > 60 > 60 BUN/Creatinine Ratio 17 9 Glucose 134 H 176 H Lactic Acid Calcium 8.2 L 7.7 L 09/28/18 09/27/18 09/27/18 12:26 21:43 21:37 WBC 3.7 L RBC 3.48 L Hgb 9.6 L Hct 30.0 L MCV 86.2 MCH 27.6 L MCHC 32.0 RDW 17.7 H Plt Count 156 MPV 9.8 Neutrophils # 2.4 Lymphocytes # 0.8 Monocytes # 0.3 Eosinophils # 0.2 Basophils # 0.0 Sodium Potassium 3.1 L Chloride Carbon Dioxide BUN Creatinine Est GFR ( Amer) Est GFR (Non-Af Amer) BUN/Creatinine Ratio Glucose Lactic Acid 0.8 Calcium Assessment and Plan Pt referred for biopsy of sacrum/left pelvis for osteomyelitis. Unfortunately, the CT scanner is still down. Hopefully, the scanner will be up by tomorrow and can proceed. Will need to correct INR to around 1.5. Discussed with Dr Daley.
[2018-09-30] MEDS: DAPTOmycin 500 MG in 0.9 % Sodium Chloride 100 ML IVPB SCH (15:17)
[2018-09-30] MEDS: Nystatin POWDER 30 GM BOTTLE TP SCH (15:18)
[2018-09-30] MEDS: *HR* Promethazine 25 MG/ML VIAL IVP PRN (16:07)
[2018-09-30] MEDS ORDERED: *HR* Phytonadione 5 MG TABLET PO ONE (20:16)
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
[2018-09-30] MEDS: traMADol 50 MG TABLET PO PRN (23:18)
[2018-10-01] MEDS ORDERED: *HR* OxyCODONE Immed Rel 5 MG TABLET PO ONE (00:58)
[2018-10-01] MEDS: Piperacillin/Tazobactam 3.375 GM in 0.9 % Sodium Chloride Mini Bag 100 ML IVPB SCH ×3 (01:22→17:24)
[2018-10-01] MEDS ORDERED: traMADol 50 MG TABLET PO ONE (03:59)
[2018-10-01] MEDS: Nystatin POWDER 30 GM BOTTLE TP SCH ×2 (05:04→08:26)
[2018-10-01 06:17] LABS: INR 1.7
[2018-10-01] MEDS: *HR* OxyCODONE Immed Rel 5 MG TABLET PO PRN ×3 (07:37→21:34)
[2018-10-01 08:22] LABS: Hematocrit 29.3 % (35.3-44.9); Hemoglobin 9.3 g/dL (11.5-15.4); Mean Corpuscular HGB Conc 31.7 g/dL (31.6-35.5); Mean Corpuscular Hemoglobin 27.5 pg (28.0-33.3); Mean Corpuscular Volume 86.7 fL (83.0-100.0); Mean Platelet Volume 9.7 fL (9.4-12.4); Platelet Count 218 K/mcL (140-400); Red Blood Count 3.38 M/mcL (3.82-4.97); Red Cell Distribution Width 18.6 % (11.5-14.5)
[2018-10-01] MEDS: Sennosides 8.6 MG TABLET PO SCH (08:23)
[2018-10-01] MEDS: Gabapentin 400 MG CAPSULE PO SCH ×3 (08:23→21:33)
[2018-10-01] MEDS: Nicotine 21 MG PATCH.TD24 TD SCH (08:23)
[2018-10-01] MEDS: Ascorbic Acid 500 MG TABLET PO SCH ×2 (08:24→17:24)
[2018-10-01] MEDS: FLUoxetine 20 MG CAPSULE PO SCH (08:24)
[2018-10-01] MEDS: Cholecalciferol (D-3) 1,000 UNIT TABLET PO SCH (08:25)
[2018-10-01] MEDS: Multivit/Ca/Min/Fe/FA 1 TAB TABLET PO SCH (08:25)
[2018-10-01] MEDS: Zinc Sulfate 220 MG CAPSULE PO SCH (08:25)
[2018-10-01] MEDS: Insulin LISPRO 300 UNITS/3 ML VIAL SQ SCH ×3 (08:27→17:28)
[2018-10-01 08:42] LABS: BUN/Creatinine Ratio 15 (6-26); Blood Urea Nitrogen 5 mg/dL (6-20); Calcium 7.8 mg/dL (8.6-10.3); Carbon Dioxide 27 mEq/L (23-29); Chloride 106 mEq/L (98-107); Glucose 169 mg/dL (70-105); Magnesium 1.6 mg/dL (1.6-2.6); Osmolality,Calculated 293 (280-300); Phosphorous 2.9 mg/dL (2.7-4.5); Potassium 3.5 mEq/L (3.5-5.1); Sodium 141 mEq/L (136-145); eGFR For Non-African Americans > 60 (> 60)
[2018-10-01] MEDS ORDERED: 0.9 % Sodium Chloride 500 ML ONE (09:40)
[2018-10-01] MEDS ORDERED: *HR* FentaNYL (PF) 100 MCG/2 ML VIAL IVP ONE (10:29)
[2018-10-01] MEDS ORDERED: *HR* Midazolam HCl 2 MG/2 ML VIAL IVP ONE (10:29)
[2018-10-01] MEDS ORDERED: *HR* Midazolam HCl 2 MG/2 ML VIAL ONE (10:31)
[2018-10-01] MEDS ORDERED: *HR* FentaNYL (PF) 100 MCG/2 ML VIAL ONE (10:31)
--- NOTE | 2018-10-01 10:34 | Pre-Sedation Evaluation ---
Pre-sedation evaluation - Pre-sedation checklist Procedure: bone biopsy Recent Vitals: Last Vital Signs Temp 98.0 F 10/01/18 07:02 Pulse 90 10/01/18 07:02 Resp 16 09/30/18 20:02 BP 125/73 10/01/18 07:02 Pulse Ox 98 10/01/18 07:02 H&P (including ROS) documented in medical record: Yes Previous reaction to sedatives/anesthetics: Yes; explain in comment Dietary Status: NPO after Midnight Dentition: No loose teeth or bridges Possible difficult airway: No ASA Classification *see protocol: CLASS II-Mild systemic disease, CLASS III- Severe systemic disease Plan of Care: Pt appropriate candidate for procedure/moderate/conscious sedation, Risks/benefits of procedure/sedation discussed w/ patient/family
--- NOTE | 2018-10-01 11:09 | IR Procedure Note ---
Date of procedure: 10/01/18 Consent Obtained: Verbal consent, Written consent Timeout: Correct patient and procedure verified, Correct site verified, Time out performed, Skin prep completed Local anesthetic: Lidocaine 1% Indications: osteomyelitis pelvic bones Procedure Performed: bone biopsy and aspirate Was there an clinical laboratory assistant present: No Site/Technique: left iliac bone Results/Findings: 2 cores and 5 cc aspirate obtained Estimated blood loss (cc): 0 Complications: None; Tolerated procedure well Post Procedure Treatment Plan: followup path Specimen: as above
[2018-10-01] MEDS: traMADol 50 MG TABLET PO PRN (11:52)
--- NOTE | 2018-10-01 12:48 | Internal Med Progress Note ---
Hospitalist Progress Note - Encounter Date of Encounter: 10/01/18 Time of Encounter: 12:46 - Subjective Interval History: Patient seen and evaluated at bedside. she reports feeling better, but recalls that she is still having pain in her back and would like her pain medications adjusted. she denies chest pain, abdominal pain, nausea or vomiting. but reports that she is still having watery stool. reports that the urinary catheter is again leaking. - Exam Vitals: Temp Pulse Resp BP Pulse Ox 97.5 F L 87 15 122/70 96 10/01/18 12:10 10/01/18 12:10 10/01/18 10:59 10/01/18 12:10 10/01/18 12:10 Exam: Vitals: reviewed. General: In mild distress due to back pain Head: atraumatic, normocephalic, Eye: normal appearance, PERRL, no scleral icterus, no conjunctival injection ENT: mucous membranes moist, normal external ear exam Respiratory: Good respiratory effort. Clear to auscultation bilaterally, no wheezing, rales or crackles. Cardiovascular: RRR, normal s1 and s2, No rubs, gallops, or murmors. Abdomen: Bowel sounds present normoactive x-4 quadrants. generalized tenderness to superficial palpation. Suprapubic catheter in place. Musculoskeletal: paraplegia. Unstageable sacral decubitus ulcer. Unstageable ulcer in the right heel. Neuro: Alert and oriented x4. Psych: Patient's affect is normal - Assessment and Plan (1) Osteomyelitis Current Visit: Yes Status: Acute Assessment and Plan: MR/MR pelvis wo/w con IMPRESSION: 1. Chronic bone marrow edema in the proximal remnant sacrum and bilateral posterior iliac bones without significant change from 01/08/2018. Mild bone marrow edema in the left posterior ischium and acetabulum improved from 01/08/2018. Findings likely reflect chronic or acute on chronic osteomyelitis. 2. Chronic erosion of the right posterior ischium unchanged from 01/08/2018. No associated bone marrow edema to suggest acute osteomyelitis. No new areas of osteomyelitis. 3. Large chronic midline and bilateral ischial decubitus ulcers. The midline ulceration includes a sinus tract contacting the posterior aspect of the rectum without a drainable fluid collection identified Plan Bone biopsy done, will follow report ID consulted patient on Daptomycin 500mg/IV daily and Piperacillin/Tazobactam 3.375mg/IV Q8HRs length of antibiotics coverage pending on bone biopsy report. (2) Sepsis Current Visit: Yes Status: Resolved Assessment and Plan: Septic picture has resolved. Patient hemodynamically stable. Afebrile, non- tachycardic Plan of care as above. (3) Decubitus ulcer of coccygeal region, stage 4 Current Visit: No Status: Chronic Assessment and Plan: Wound care has been consulted. Pain control with oxycodone 10 mg by mouth every 6 hours when necessary, and tramadol 50 mg by mouth every 6 hours when necessary Hold senna, as patient is having watery diarrhea. (4) Right foot ulcer Current Visit: No Status: Chronic Assessment and Plan: plan of care as above. (5) Paraplegia Current Visit: No Status: Chronic Assessment and Plan: Daily PT/OT. (6) Type 2 diabetes mellitus Current Visit: No Status: Chronic Assessment and Plan: Blood sugar has been well controlled. Continue lispro medium dose sliding scale before meals Carb controlled diet. Will add Levemir 5 unit HS (7) UTI (urinary tract infection) Current Visit: No Status: Acute Assessment and Plan: Continue Pipperacillin/tazobactam 3.375mg/IV Q8HR ID recommendations appreciated. (8) Neurogenic bladder Current Visit: No Status: Chronic Assessment and Plan: s/p catheter replacement. patient reports still having urine leakage Will call Urology for evaluation. (9) Bacteremia Current Visit: Yes Status: Resolved Assessment and Plan: Blood cultures on this 09/23/18 grew proteus mirabilis. repeated blood culture: No growth final report (10) History of DVT (deep vein thrombosis) Current Visit: No Status: Chronic Assessment and Plan: On warfarin, per pharmacy dosing. DVT Prophylaxis: Patient is on warfarin. Due to history of DVT. - Summary of Assessment and Plan Summary of Assessment and Plan: Patient to remain in the hospital s/p bone biopsy. Pending result for outpatient antibiotics coverage length - Time Spent with Patient Total time spent is greater than 50% in coordination of care (as documented) at patient's floor/unit and/or counseling patient: Greater than 35 minutes (45) Plan of Care Discussed with: patient (And the nurse.) Internal Medicine: Result - Labs CBC & Chem 7: 10/01/18 07:58 10/01/18 07:58 Labs: Short CBC 10/01/18 Range/Units 07:58 WBC 6.0 (4.3-11.1) K/mcL Hgb 9.3 L (11.5-15.4) g/dL Hct 29.3 L (35.3-44.9) % Plt Count 218 (140-400) K/mcL BMP 10/01/18 07:58 Sodium 141 Potassium 3.5 Chloride 106 Carbon Dioxide 27 BUN 5 L Creatinine 0.33 L Glucose 169 H Calcium 7.8 L - ABG Interpretation ABG results: PT/INR, D-dimer PT 19.0 Seconds (9.4-12.1) H 10/01/18 05:11 Consult Discharge Plan - Plan Referrals: Everton Lew [Primary Care Provider] - (1) Osteomyelitis Qualifiers: Osteomyelitis type: unspecified type Osteomyelitis location: femur Laterality: right Qualified Code(s): M86.9 - Osteomyelitis, unspecified (2) Sepsis Qualifiers: Sepsis type: sepsis due to unspecified organism Qualified Code(s): A41.9 - Sepsis, unspecified organism (4) Right foot ulcer Qualifiers: Non-pressure ulcer stage: unspecified non-pressure ulcer stage Qualified Code(s): L97.519 - Non-pressure chronic ulcer of other part of right foot with unspecified severity (6) Type 2 diabetes mellitus Qualifiers: Diabetes mellitus rn long term care insulin use: unspecified mcfp insulin use status Diabetes mellitus complication status: with unspecified complications Qualified Code(s): E11.8 - Type 2 diabetes mellitus with unspecified complications (7) UTI (urinary tract infection) Qualifiers: Urinary tract infection type: catheter-associated UTI Indwelling urinary catheter type: unspecified Encounter type: sequela Qualified Code(s): T83.511S - Infection and inflammatory reaction due to indwelling urethral catheter, sequela; N39.0 - Urinary tract infection, site not specified
[2018-10-01] MEDS: DAPTOmycin 500 MG in 0.9 % Sodium Chloride 100 ML IVPB SCH (15:28)
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
[2018-10-01] MEDS ORDERED: *HR* Warfarin 3 MG TABLET PO ONE (18:00)
[2018-10-01] MEDS ORDERED: Insulin DETEMIR 100 UNIT/ML X5UNITS SQ SCH (21:00)
[2018-10-02] MEDS: diazePAM 5 MG TABLET PO PRN (00:52)
[2018-10-02] MEDS: traMADol 50 MG TABLET PO PRN ×3 (00:52→21:01)
[2018-10-02] MEDS: Piperacillin/Tazobactam 3.375 GM in 0.9 % Sodium Chloride Mini Bag 100 ML IVPB SCH ×3 (01:59→21:02)
[2018-10-02 04:22] LABS: Basophils % 0.3 %; Eosinophils # 0.2 K/mcL (0.0-0.6); Eosinophils % 3.3 %; Hematocrit 28.8 % (35.3-44.9); Hemoglobin 8.8 g/dL (11.5-15.4); Immature Granulocytes % 0.9 % (0-4); Lymphocytes # 1.8 K/mcL (0.6-4.6); Lymphocytes % 27.4 %; Mean Corpuscular HGB Conc 30.6 g/dL (31.6-35.5); Mean Corpuscular Hemoglobin 26.6 pg (28.0-33.3); Mean Platelet Volume 9.5 fL (9.4-12.4); Monocytes # 0.4 K/mcL (0.0-1.3); Monocytes % 6.2 %; Platelet Count 215 K/mcL (140-400); Red Blood Count 3.31 M/mcL (3.82-4.97); Red Cell Distribution Width 18.9 % (11.5-14.5); Segmented Neutrophils % 61.9 %
[2018-10-02 04:26] LABS: INR 1.3; Prothrombin Time 14.2 Seconds (9.4-12.1)
[2018-10-02 04:38] LABS: BUN/Creatinine Ratio 25 (6-26); Blood Urea Nitrogen 6 mg/dL (6-20); Carbon Dioxide 27 mEq/L (23-29); Chloride 105 mEq/L (98-107); Glucose 195 mg/dL (70-105); Magnesium 1.6 mg/dL (1.6-2.6); Osmolality,Calculated 287 (280-300); Phosphorous 2.5 mg/dL (2.7-4.5); Potassium 2.9 mEq/L (3.5-5.1); Sodium 137 mEq/L (136-145); eGFR For Non-African Americans > 60 (> 60)
[2018-10-02] MEDS: *HR* OxyCODONE Immed Rel 5 MG TABLET PO PRN ×3 (09:54→23:50)
[2018-10-02] MEDS: Multivit/Ca/Min/Fe/FA 1 TAB TABLET PO SCH (10:35)
[2018-10-02] MEDS: Gabapentin 400 MG CAPSULE PO SCH ×3 (10:36→21:01)
[2018-10-02] MEDS: Ascorbic Acid 500 MG TABLET PO SCH ×2 (10:36→17:18)
[2018-10-02] MEDS: Cholecalciferol (D-3) 1,000 UNIT TABLET PO SCH (10:36)
[2018-10-02] MEDS: FLUoxetine 20 MG CAPSULE PO SCH (10:36)
[2018-10-02] MEDS: Zinc Sulfate 220 MG CAPSULE PO SCH (10:36)
[2018-10-02] MEDS: Nicotine 21 MG PATCH.TD24 TD SCH (10:37)
[2018-10-02] MEDS: Insulin LISPRO 300 UNITS/3 ML VIAL SQ SCH ×3 (10:50→17:27)
[2018-10-02] MEDS: Nystatin POWDER 30 GM BOTTLE TP SCH ×3 (10:50→21:13)
[2018-10-02] MEDS ORDERED: Potassium Chloride 30 MEQ, Lidocaine 1% 2 ML in D5% in Water 500 ML IVPB ONE (11:32)
--- NOTE | 2018-10-02 13:00 | Internal Med Progress Note ---
Hospitalist Progress Note - Encounter Date of Encounter: 10/02/18 Time of Encounter: 12:59 - Subjective Interval History: I've seen and evaluated the patient at bedside. She reports that after the bone biopsy the pain in her back has increased. Denies shortness of breath, abdominal pain, nausea or vomiting. - Exam Vitals: Temp Pulse Resp BP Pulse Ox 98.1 F 96 18 107/64 94 10/02/18 10:37 10/02/18 10:37 10/02/18 10:37 10/02/18 10:37 10/02/18 10:37 Exam: Vitals: reviewed. General: reports back pain ENT: mucous membranes moist, normal external ear exam Respiratory: Good respiratory effort. Clear to auscultation bilaterally, no wheezing, rales or crackles. Cardiovascular: RRR, normal s1 and s2, No rubs, gallops, or murmors. Abdomen: NABS x-4 quadrants. generalized tenderness to superficial palpation. Suprapubic catheter in place. colostomy bag with brown liquid stool. Musculoskeletal: paraplegia. Unstageable sacral decubitus ulcer. Unstageable ulcer in the right heel. Neuro: Alert and oriented x4. Psych: Patient's affect is normal - Assessment and Plan (1) Osteomyelitis Current Visit: Yes Status: Acute Assessment and Plan: s/p bone biopsy yesterday. Patient on daptomycin 500mg/IV Q24HRs and Piperacillin/tazobactam 3.375mg/IV Q8HRs as per ID recommendations preliminary bone biopsy report: Bacteria None observed. will follow final report. ID recommendations appreciated. (2) Sepsis Current Visit: Yes Status: Resolved Assessment and Plan: sepsis resolved. plan of care as above. (3) Decubitus ulcer of coccygeal region, stage 4 Current Visit: No Status: Chronic Assessment and Plan: wound care as per wound care nurse recommendations Pain control with oxycodone 10 mg by mouth every 6 hours And tramadol 50 mg by mouth every 4 when necessary (4) Right foot ulcer Current Visit: No Status: Chronic Assessment and Plan: plan of care as per wound care recommendations patient on broad spectrum IV antibiotics. (5) Paraplegia Current Visit: No Status: Chronic Assessment and Plan: Pt/Ot consulted (6) Type 2 diabetes mellitus Current Visit: No Status: Chronic Assessment and Plan: blood sugar sub-optimally controlled increase levemir to 5 units BID Continue lispro (dose sliding scale before meals Carb controlled diet. (7) UTI (urinary tract infection) Current Visit: No Status: Acute Assessment and Plan: Complicated UTI. Patient has been on broad spectrum antibiotics for the past 9 days. (8) Neurogenic bladder Current Visit: No Status: Chronic Assessment and Plan: Urology contacted as patient reports that the Urinary catheter continues to leak. (9) Bacteremia Current Visit: Yes Status: Resolved (10) History of DVT (deep vein thrombosis) Current Visit: No Status: Chronic Assessment and Plan: On warfarin per pharmacy dosing if INR not therapeutic tomorrow will add heparin drip as a bridge. (11) Hypokalemia Current Visit: No Status: Acute Assessment and Plan: Possible secondary to GI loss. Electrolytes being replaced Repeat BMP 1 hour post electrolyte replacement. Magnesium, and phosphorus level in the morning. DVT Prophylaxis: anticoagulated on warfarin due to Hx of A.fib - Summary of Assessment and Plan Summary of Assessment and Plan: Patient to remain in the hospital due to Osteomyelitis s/p bone biopsy. Pending biopsy report. - Time Spent with Patient Total time spent is greater than 50% in coordination of care (as documented) at patient's floor/unit and/or counseling patient: Greater than 35 minutes (45) Plan of Care Discussed with: patient (and the nurse.) Internal Medicine: Result - Labs CBC & Chem 7: 10/02/18 04:04 10/02/18 04:04 Labs: Short CBC 10/02/18 Range/Units 04:04 WBC 6.5 (4.3-11.1) K/mcL Hgb 8.8 L (11.5-15.4) g/dL Hct 28.8 L (35.3-44.9) % Plt Count 215 (140-400) K/mcL Neutrophils # 4.0 (1.6-8.9) K/mcL BMP 10/02/18 04:04 Sodium 137 Potassium 2.9 L Chloride 105 Carbon Dioxide 27 BUN 6 Creatinine 0.24 L Glucose 195 H Calcium 8.0 L - ABG Interpretation ABG results: PT/INR, D-dimer PT 14.2 Seconds (9.4-12.1) H 10/02/18 04:04 - Impressions Impressions Bone Biopsy CT 10/01/18 00:00 IMPRESSION: Successful CT guided core biopsy of left iliac bone. D/ / Maurisio Blancas / Maurisio Blancas Interpreting Provider: Maurisio Blancas Consult Discharge Plan - Plan Referrals: Everton Lew [Primary Care Provider] - (office will call patient at home with appointment date and time) (1) Osteomyelitis Qualifiers: Osteomyelitis type: unspecified type Osteomyelitis location: femur Laterality: right Qualified Code(s): M86.9 - Osteomyelitis, unspecified (2) Sepsis Qualifiers: Sepsis type: sepsis due to unspecified organism Qualified Code(s): A41.9 - Sepsis, unspecified organism (4) Right foot ulcer Qualifiers: Non-pressure ulcer stage: unspecified non-pressure ulcer stage Qualified Code(s): L97.519 - Non-pressure chronic ulcer of other part of right foot with unspecified severity (6) Type 2 diabetes mellitus Qualifiers: Diabetes mellitus long-term insulin use: unspecified management assistant insulin use status Diabetes mellitus complication status: with unspecified complications Qualified Code(s): E11.8 - Type 2 diabetes mellitus with unspecified complications (7) UTI (urinary tract infection) Qualifiers: Urinary tract infection type: catheter-associated UTI Indwelling urinary catheter type: unspecified Encounter type: sequela Qualified Code(s): T83.511S - Infection and inflammatory reaction due to indwelling urethral catheter, sequela; N39.0 - Urinary tract infection, site not specified
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
[2018-10-02 17:09] LABS: BUN/Creatinine Ratio 17 (6-26); Blood Urea Nitrogen 8 mg/dL (6-20); Calcium 7.8 mg/dL (8.6-10.3); Carbon Dioxide 26 mEq/L (23-29); Chloride 105 mEq/L (98-107); Glucose 229 mg/dL (70-105); Osmolality,Calculated 290 (280-300); Potassium 3.2 mEq/L (3.5-5.1); Sodium 137 mEq/L (136-145); eGFR For Non-African Americans > 60 (> 60)
[2018-10-02] MEDS: DAPTOmycin 500 MG in 0.9 % Sodium Chloride 100 ML IVPB SCH (17:38)
[2018-10-02] MEDS ORDERED: *HR* Warfarin 7.5 MG TABLET PO ONE (18:00)
[2018-10-02] MEDS: Insulin DETEMIR 100 UNIT/ML X5UNITS SQ SCH (21:12)
[2018-10-03] MEDS: *HR* Promethazine 25 MG/ML VIAL IVP PRN (02:09)
[2018-10-03] MEDS: Piperacillin/Tazobactam 3.375 GM in 0.9 % Sodium Chloride Mini Bag 100 ML IVPB SCH ×4 (02:09→18:13)
[2018-10-03 07:32] LABS: INR 1.3; Prothrombin Time 15.1 Seconds (9.4-12.1)
[2018-10-03] MEDS: *HR* OxyCODONE Immed Rel 5 MG TABLET PO PRN ×3 (07:34→17:37)
[2018-10-03 08:08] LABS: BUN/Creatinine Ratio 27 (6-26); Blood Urea Nitrogen 7 mg/dL (6-20); Calcium 8.2 mg/dL (8.6-10.3); Carbon Dioxide 26 mEq/L (23-29); Chloride 105 mEq/L (98-107); Glucose 154 mg/dL (70-105); Magnesium 1.8 mg/dL (1.6-2.6); Osmolality,Calculated 285 (280-300); Phosphorous 3.5 mg/dL (2.7-4.5); Potassium 3.6 mEq/L (3.5-5.1); Sodium 137 mEq/L (136-145); eGFR For Non-African Americans > 60 (> 60)
[2018-10-03] MEDS: FLUoxetine 20 MG CAPSULE PO SCH (10:22)
[2018-10-03] MEDS: Multivit/Ca/Min/Fe/FA 1 TAB TABLET PO SCH (10:22)
[2018-10-03] MEDS: Zinc Sulfate 220 MG CAPSULE PO SCH (10:23)
[2018-10-03] MEDS: Ascorbic Acid 500 MG TABLET PO SCH ×2 (10:23→17:37)
[2018-10-03] MEDS: Cholecalciferol (D-3) 1,000 UNIT TABLET PO SCH (10:23)
[2018-10-03] MEDS: Gabapentin 400 MG CAPSULE PO SCH ×3 (10:24→21:09)
[2018-10-03] MEDS: Nicotine 21 MG PATCH.TD24 TD SCH (10:25)
[2018-10-03] MEDS: Insulin LISPRO 300 UNITS/3 ML VIAL SQ SCH ×3 (10:43→18:09)
[2018-10-03] MEDS: traMADol 50 MG TABLET PO PRN (10:49)
[2018-10-03] MEDS: Insulin DETEMIR 100 UNIT/ML X5UNITS SQ SCH ×2 (10:50→21:09)
[2018-10-03] MEDS: Nystatin POWDER 30 GM BOTTLE TP SCH ×2 (10:54→21:23)
[2018-10-03] MEDS ORDERED: *HR* Heparin 5,000 UNIT/ML VIAL IVP PRN ×2 (11:27)
[2018-10-03] MEDS ORDERED: *HR* Heparin 5,000 UNIT/ML VIAL IVP ONE (11:27)
--- NOTE | 2018-10-03 11:33 | Internal Med Progress Note ---
Hospitalist Progress Note - Encounter Date of Encounter: 10/03/18 Time of Encounter: 11:29 - Subjective Interval History: I've seen and evaluated the patient at bedside. Patient reports that her back pain is not well controlled. Denies shortness of breath, nausea, vomiting or abdominal pain. Reports that her urinary catheter is no longer leaking. - Exam Vitals: Temp Pulse Resp BP Pulse Ox 98.2 F 86 14 110/71 97 10/03/18 07:06 10/03/18 07:06 10/03/18 05:12 10/03/18 07:06 10/03/18 05:12 Exam: Vitals: reviewed. General: In mild distress due to back pain ENT: mucous membranes moist, normal external ear exam Respiratory:Clear to auscultation bilaterally, no wheezing, rales or crackles. Cardiovascular: RRR, normal s1 and s2, No rubs, gallops, or murmors. Abdomen: NABS x-4 quadrants. generalized tenderness to superficial palpation. Suprapubic catheter in place. colostomy bag with liquid stool. Musculoskeletal: paraplegia. Unstageable sacral decubitus ulcer. Unstageable ulcer in the right heel. Neuro: Awake, AOx4. CN II-XII intact. Psych: Patient's affect is normal - Assessment and Plan (1) Osteomyelitis Current Visit: Yes Status: Acute Assessment and Plan: s/p bone biopsy. Bone biopsy specimen no growth, pending final report Patient on broad spectrum IV antibiotics per ID recommendations On daptomycin 500 mg IV daily, and PEEP. And Piperacillin/tazobactam 3.375mg/IV Q8HRs (2) Right foot ulcer Current Visit: No Status: Chronic Assessment and Plan: Plan of care as above. (3) Decubitus ulcer of coccygeal region, stage 4 Current Visit: No Status: Chronic Assessment and Plan: Wound culture growing gram-negative rods Patient on Piperacillin/tazobactam 3.375mg/IV Q8HRs Wound care as per wound care nurse (4) Paraplegia Current Visit: No Status: Chronic Assessment and Plan: PT/OT has been consulted. (5) Type 2 diabetes mellitus Current Visit: No Status: Chronic Assessment and Plan: Blood sugar is well controlled. Continue with carb controlled diet, Levemir 5 units twice a day On lispro medium dose sliding scale before meals. (6) UTI (urinary tract infection) Current Visit: No Status: Acute Assessment and Plan: patient has been on broad spectrum antibiotics for the past 10 days. (7) Neurogenic bladder Current Visit: No Status: Chronic Assessment and Plan: s/p catheter replacement. as per patient leakage has resolved. (8) Bacteremia Current Visit: Yes Status: Resolved (9) History of DVT (deep vein thrombosis) Current Visit: No Status: Chronic Assessment and Plan: Patient on warfarin with a Sub-therapeutic INR continue warfarin per pharmacy dosing will bridge while in patient with heparin drip will repeat venous dupplex of the lower extr patient reported she was diagnosed with a DVT more than 3 years ago. (10) Hypokalemia Current Visit: No Status: Resolved (11) Sepsis Current Visit: Yes Status: Resolved DVT Prophylaxis: Started on heparin drip, due to history of DVT on warfarin and a nontherapeutic INR. - Summary of Assessment and Plan Summary of Assessment and Plan: Patient to remain in the hospital pending bone biopsy result. - Time Spent with Patient Total time spent is greater than 50% in coordination of care (as documented) at patient's floor/unit and/or counseling patient: Greater than 35 minutes (41) Plan of Care Discussed with: patient (And the nurse.) Internal Medicine: Result - Labs CBC & Chem 7: 10/02/18 04:04 10/03/18 07:11 Labs: BMP 10/02/18 10/03/18 16:35 07:11 Sodium 137 137 Potassium 3.2 L 3.6 Chloride 105 105 Carbon Dioxide 26 26 BUN 8 7 Creatinine 0.46 L 0.26 L Glucose 229 H 154 H Calcium 7.8 L 8.2 L - ABG Interpretation ABG results: PT/INR, D-dimer PT 15.1 Seconds (9.4-12.1) H 10/03/18 07:11 Consult Discharge Plan - Plan Referrals: Everton Lew [Primary Care Provider] - (office will call patient at home with appointment date and time) (1) Osteomyelitis Qualifiers: Osteomyelitis type: unspecified type Osteomyelitis location: femur Laterality: right Qualified Code(s): M86.9 - Osteomyelitis, unspecified (2) Right foot ulcer Qualifiers: Non-pressure ulcer stage: unspecified non-pressure ulcer stage Qualified Code (s): L97.519 - Non-pressure chronic ulcer of other part of right foot with unspecified severity (5) Type 2 diabetes mellitus Qualifiers: Diabetes mellitus terminal operator insulin use: unspecified detention insulin use status Diabetes mellitus complication status: with unspecified complications Qualified Code(s): E11.8 - Type 2 diabetes mellitus with unspecified complications (6) UTI (urinary tract infection) Qualifiers: Urinary tract infection type: catheter-associated UTI Indwelling urinary catheter type: unspecified Encounter type: sequela Qualified Code(s): T83.511S - Infection and inflammatory reaction due to indwelling urethral catheter, sequela; N39.0 - Urinary tract infection, site not specified (11) Sepsis Qualifiers: Sepsis type: sepsis due to unspecified organism Qualified Code(s): A41.9 - Sepsis, unspecified organism
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
[2018-10-03 17:30] LABS: Hematocrit 29.4 % (35.3-44.9); Hemoglobin 9.1 g/dL (11.5-15.4); Mean Corpuscular Hemoglobin 27.6 pg (28.0-33.3); Mean Corpuscular Volume 89.1 fL (83.0-100.0); Mean Platelet Volume 9.9 fL (9.4-12.4); Platelet Count 213 K/mcL (140-400); Red Cell Distribution Width 19.4 % (11.5-14.5)
[2018-10-03 17:38] LABS: INR 1.3; Prothrombin Time 14.3 Seconds (9.4-12.1)
[2018-10-03] MEDS ORDERED: *HR* Warfarin 7.5 MG TABLET PO ONE (18:00)
[2018-10-03] MEDS: Heparin 25,000 UNIT/500 ML D5W 25,000 UNIT/500 ML BAG IVC SCH (18:07)
[2018-10-03] MEDS: *HR* HYDROcodone/Acet 5/325 mg TABLET PO PRN (21:09)
[2018-10-04] MEDS: Piperacillin/Tazobactam 3.375 GM in 0.9 % Sodium Chloride Mini Bag 100 ML IVPB SCH ×2 (02:21→09:34)
[2018-10-04] MEDS: *HR* OxyCODONE Immed Rel 5 MG TABLET PO PRN ×3 (02:31→16:51)
[2018-10-04 05:09] LABS: Basophils % 0.1 %; Eosinophils # 0.2 K/mcL (0.0-0.6); Eosinophils % 3.2 %; Hematocrit 29.3 % (35.3-44.9); Immature Granulocytes % 1.3 % (0-4); Lymphocytes # 1.6 K/mcL (0.6-4.6); Lymphocytes % 23.8 %; Mean Corpuscular HGB Conc 30.7 g/dL (31.6-35.5); Mean Corpuscular Hemoglobin 27.7 pg (28.0-33.3); Mean Corpuscular Volume 90.2 fL (83.0-100.0); Monocytes # 0.4 K/mcL (0.0-1.3); Monocytes % 5.1 %; Neutrophils # 4.5 K/mcL (1.6-8.9); Platelet Count 203 K/mcL (140-400); Red Blood Count 3.25 M/mcL (3.82-4.97); Red Cell Distribution Width 19.5 % (11.5-14.5); Segmented Neutrophils % 66.5 %
[2018-10-04 05:16] LABS: INR 1.5; Prothrombin Time 16.7 Seconds (9.4-12.1)
[2018-10-04 05:27] LABS: BUN/Creatinine Ratio 29 (6-26); Blood Urea Nitrogen 7 mg/dL (6-20); Calcium 8.4 mg/dL (8.6-10.3); Carbon Dioxide 29 mEq/L (23-29); Chloride 103 mEq/L (98-107); Glucose 170 mg/dL (70-105); Magnesium 1.8 mg/dL (1.6-2.6); Osmolality,Calculated 286 (280-300); Phosphorous 3.5 mg/dL (2.7-4.5); Potassium 3.8 mEq/L (3.5-5.1); Sodium 137 mEq/L (136-145); eGFR For Non-African Americans > 60 (> 60)
[2018-10-04] MEDS: *HR* HYDROcodone/Acet 5/325 mg TABLET PO PRN ×2 (06:31→14:52)
[2018-10-04] MEDS: Nicotine 21 MG PATCH.TD24 TD SCH (09:20)
[2018-10-04] MEDS: Insulin LISPRO 300 UNITS/3 ML VIAL SQ SCH ×3 (09:21→18:09)
[2018-10-04] MEDS: Insulin DETEMIR 100 UNIT/ML X5UNITS SQ SCH (09:22)
[2018-10-04] MEDS: Nystatin POWDER 30 GM BOTTLE TP SCH (09:39)
[2018-10-04] MEDS: FLUoxetine 20 MG CAPSULE PO SCH (09:39)
[2018-10-04] MEDS: Multivit/Ca/Min/Fe/FA 1 TAB TABLET PO SCH (09:39)
[2018-10-04] MEDS: Gabapentin 400 MG CAPSULE PO SCH ×2 (09:39→14:52)
[2018-10-04] MEDS: Cholecalciferol (D-3) 1,000 UNIT TABLET PO SCH (09:39)
[2018-10-04] MEDS: Ascorbic Acid 500 MG TABLET PO SCH (09:39)
[2018-10-04] MEDS: Heparin 25,000 UNIT/500 ML D5W 25,000 UNIT/500 ML BAG IVC SCH (14:56)
--- NOTE | 2018-10-04 15:07 | Physician Discharge Referral ---
Home Health/Hosp Referral Info Transfer to: Home Health - Diagnosis (1) Osteomyelitis Priority: Primary Status: Acute (2) Right foot ulcer Priority: Secondary Status: Chronic (3) Decubitus ulcer of coccygeal region, stage 4 Priority: Secondary Status: Chronic (4) Paraplegia Priority: Secondary Status: Chronic (5) Type 2 diabetes mellitus Priority: Secondary Status: Chronic (6) UTI (urinary tract infection) Priority: Secondary Status: Resolved (7) Neurogenic bladder Priority: Secondary Status: Chronic (8) Bacteremia Priority: Secondary Status: Resolved (9) History of DVT (deep vein thrombosis) Priority: Secondary Status: Chronic (10) Hypokalemia Priority: Secondary Status: Resolved (11) Sepsis Priority: Secondary Status: Resolved - Respiratory Orders None Smoking Cessation: Smoking cessation has been advised. For more information, call the [employer] Tobacco Quit Line at 0-564-UHLO-NOW. - Diet/Nutrition Diet/Nutrition Orders: Regular - Activity Activity Orders: Chair - Services Needed Following services are medically necessary services: Nursing, Home Health Aide, Physical Therapy, Occupational Therapy - Transfer Medications Home Medications: Sennosides [Senna] 17.2 mg PO DAILY 09/07/15 [History] Albuterol Sulfate [Proair Hfa] 2 puff IH Q4H PRN 10/06/16 [History] Cholecalciferol (Vitamin D3) [Vitamin D3] 2,000 unit PO DAILY 10/06/16 [History] Gabapentin [Neurontin] 1,200 mg PO TID 10/06/16 [History] Multivit/Ca/Min/Fe/FA [Thera M Plus] 1 tab PO DAILY 30 Days tablet 10/19/16 [Rx] Torsemide [Demadex] 20 mg PO BID 11/30/16 [History] diazePAM [Valium] 10 mg PO TID PRN 11/30/16 [History] Fluconazole [Diflucan] 150 mg PO DAILY #1 tab 10/24/17 [Rx] FLUoxetine HCl [Prozac] 80 mg PO DAILY 09/23/18 [History] Warfarin Sodium [Coumadin] 6 mg PO DAILY 09/23/18 [History] glipiZIDE [Glipizide ER] 20 mg PO DAILY 09/23/18 [History] Potassium Chloride [K-Tab ER] 20 meq PO DAILY 09/24/18 [History] Allergies/Adverse Reactions: Allergy/AdvReac Type Severity Reaction Status Date / Time aspirin [ASA] Allergy Intermediate Nose Bleed Verified 07/21/16 20:22 ciprofloxacin [From Cipro] Allergy Hives Verified 06/26/17 12:10 fentanyl Allergy Anxiety Verified 07/21/16 20:22 furosemide [From Lasix] Allergy Cramping Verified 10/12/16 08:10 of the Muscles pregabalin [From Lyrica] Allergy Hives Verified 06/26/17 12:11 Sulfa (Sulfonamide Allergy Diarrhea Verified 07/21/16 20:22 Antibiotics) vancomycin Allergy See Verified 07/21/16 20:22 Comments metformin AdvReac See Verified 12/04/16 14:14 Comments sitagliptin [From Januvia] AdvReac See Verified 12/04/16 14:13 Comments Certification: Further, I certify that my clinical findings support that this patient is homebound (i.e. absences from home require considerable and taxing effort and are for medical reasons or restorationism services or infrequently or short duration when for other reasons) because: Homebound Reason: Patient requires assistance of a person or device to safely leave home Attestation: My signature below is to certify that this patient is under my care and that I, or nurse practitioner, or a physician's pastrycook's assistant working with me, has a [id number] encounter with this patient.
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
[2018-10-04 17:26] VITALS: BP 120/68
[2018-10-04] MEDS ORDERED: *HR* Warfarin 3 MG TABLET PO SCH (18:00)
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
== END 2018-10-04 19:56 | disposition home health service (06) | DRG 720 ==
LOC: EMEROOARM 12:47 → 2NENU 17:27 → SUATTDRO 17:27 → 2NENU 18:42
PROVIDERS: ADMIT Internal Medicine; ATTEND Internal Medicine

== ENCOUNTER 2019-10-31 12:28 | Inpatient (IN) ==
[2019-10-31 13:26] LABS: Basophils % 0.4 %; Eosinophils # 0.1 K/mcL (0.0-0.6); Eosinophils % 0.9 %; Hematocrit 34.7 % (35.3-44.9); Immature Granulocytes % 0.5 % (0-4); Lymphocytes # 1.6 K/mcL (0.6-4.6); Lymphocytes % 20.9 %; Mean Corpuscular HGB Conc 31.7 g/dL (31.6-35.5); Mean Corpuscular Hemoglobin 25.5 pg (28.0-33.3); Mean Corpuscular Volume 80.5 fL (83.0-100.0); Mean Platelet Volume 9.2 fL (9.4-12.4); Monocytes # 0.4 K/mcL (0.0-1.3); Monocytes % 4.8 %; Neutrophils # 5.6 K/mcL (1.6-8.9); Platelet Count 374 K/mcL (140-400); Red Blood Count 4.31 M/mcL (3.82-4.97); Red Cell Distribution Width 20.2 % (11.5-14.5); Segmented Neutrophils % 72.5 %; White Blood Count 7.7 K/mcL (4.3-11.1)
[2019-10-31 13:39] LABS: INR 1.3; Prothrombin Time 14.3 Seconds (9.4-12.1)
[2019-10-31 13:44] LABS: Alanine Aminotransferase 5 Units/L (7-52); Albumin 2.8 g/dL (3.5-5.7); Albumin/Globulin Ratio 0.5 (1.1-2.2); Alkaline Phosphatase 111 Units/L (34-104); Aspartate Amino Transferase 9 Units/L (13-39); BUN/Creatinine Ratio 16 (6-26); Bilirubin,Direct 0.1 mg/dL (0.0-0.2); Bilirubin,Indirect 0.2 mg/dL (0.0-1.0); Bilirubin,Total 0.3 mg/dL (0.3-1.0); Blood Urea Nitrogen 7 mg/dL (6-20); Carbon Dioxide 31 mEq/L (23-29); Chloride 91 mEq/L (98-107); Globulin 5.9 g/dL (2.4-3.5); Glucose 151 mg/dL (70-105); Osmolality,Calculated 275 (280-300); Potassium 1.9 mEq/L (3.5-5.1); Sodium 132 mEq/L (136-145); Total Protein 8.7 g/dL (6.4-8.9); Troponin I < 0.03 ng/mL (< 0.04); eGFR For African Americans > 60 (> 60); eGFR For Non-African Americans > 60 (> 60)
[2019-10-31] MEDS ORDERED: Morphine Sulfate 2 MG/ML SYRINGE IVP ONE (14:18)
[2019-10-31 15:01] LABS: Alanine Aminotransferase 4 Units/L (7-52); Albumin 2.7 g/dL (3.5-5.7); Albumin/Globulin Ratio 0.5 (1.1-2.2); Alkaline Phosphatase 111 Units/L (34-104); Aspartate Amino Transferase 8 Units/L (13-39); BUN/Creatinine Ratio 17 (6-26); Bilirubin,Total 0.3 mg/dL (0.3-1.0); Blood Urea Nitrogen 7 mg/dL (6-20); Calcium 9.2 mg/dL (8.6-10.3); Carbon Dioxide 31 mEq/L (23-29); Chloride 91 mEq/L (98-107); Glucose 127 mg/dL (70-105); Osmolality,Calculated 274 (280-300); Potassium 2.1 mEq/L (3.5-5.1); Sodium 132 mEq/L (136-145); Total Protein 8.7 g/dL (6.4-8.9); eGFR For African Americans > 60 (> 60); eGFR For Non-African Americans > 60 (> 60)
[2019-10-31] MEDS ORDERED: Acetaminophen 325 MG TABLET PO PRN (15:40)
[2019-10-31] MEDS ORDERED: Ondansetron 4 MG/2 ML VIAL IVP PRN (15:40)
[2019-10-31] MEDS ORDERED: Naloxone 0.4 MG/ML INJ IVP PRN (15:40)
[2019-10-31] MEDS ORDERED: *HR* HYDROcodone/Acet 5/325 mg TABLET PO PRN (15:40)
[2019-10-31] MEDS ORDERED: diazePAM 5 MG TABLET PO PRN (16:24)
[2019-10-31 16:52] LABS: C-Reactive Protein 233 mg/L (Less than 10)
[2019-10-31] MEDS: *HR* Heparin 5,000 UNIT/ML VIAL SQ SCH (17:27)
[2019-10-31] MEDS ORDERED: 0.9 % Sodium Chloride 500 ML IVC ONE (17:43)
[2019-10-31 17:49] LABS: Bilirubin,Urine Negative (Negative); Blood,Urine Small (Negative); Clarity,Urine Cloudy (Clear); Color,Urine Yellow (Yellow); Glucose,Urine (UA) Normal (Normal); Ketones,Urine Negative (Negative); Leukocyte Esterase,Urine Large (Negative); Nitrite,Urine Positive (Negative); Protein,Urine 30 mg/dL (Neg-Trace); Urobilinogen,Urine Normal (Normal)
[2019-10-31 17:51] LABS: Bacteria,Urine Many per hpf (None-Few); Hyaline Casts,Urine None Seen per lpf (None-Few); RBC,Urine 0-3 per hpf (0-3); Squamous Epithelial Cell,Urine Few per lpf (None-Few); WBC,Urine 15-30 per hpf (0-3)
[2019-10-31] MEDS ORDERED: 0.9 % Sodium Chloride 1,000 ML ONE (17:55)
[2019-10-31 18:26] LABS: Creatine Kinase < 10 Units/L (30-223)
[2019-10-31] MEDS ORDERED: Apixaban 5 MG TABLET PO SCH (21:00)
[2019-10-31] MEDS: DAPTOmycin 300 MG in 0.9 % Sodium Chloride 100 ML IVPB SCH (22:16)
[2019-10-31] MEDS: Gabapentin 400 MG CAPSULE PO SCH (22:17)
[2019-10-31] MEDS: Ringers Solution, Lactated 1,000 ML IVC SCH (22:42)
[2019-11-01] MEDS: Piperacillin/Tazobactam 3.375 GM in 0.9 % Sodium Chloride Mini Bag 100 ML IVPB SCH ×3 (01:11→15:44)
[2019-11-01] MEDS ORDERED: Acetaminophen IV 500 MG/50 ML INFUS..BTL IVPB ONE (01:16)
[2019-11-01] MEDS: *HR* Heparin 5,000 UNIT/ML VIAL SQ SCH ×2 (05:17→17:28)
[2019-11-01 06:20] LABS: Basophils % 0.4 %; Eosinophils # 0.1 K/mcL (0.0-0.6); Eosinophils % 0.9 %; Hematocrit 26.7 % (35.3-44.9); Immature Granulocytes % 0.4 % (0-4); Lymphocytes # 1.3 K/mcL (0.6-4.6); Lymphocytes % 18.5 %; Mean Corpuscular HGB Conc 30.3 g/dL (31.6-35.5); Mean Corpuscular Hemoglobin 25.6 pg (28.0-33.3); Mean Corpuscular Volume 84.5 fL (83.0-100.0); Mean Platelet Volume 9.6 fL (9.4-12.4); Monocytes # 0.5 K/mcL (0.0-1.3); Monocytes % 6.8 %; Platelet Count 245 K/mcL (140-400); Red Blood Count 3.16 M/mcL (3.82-4.97); Red Cell Distribution Width 20.2 % (11.5-14.5); White Blood Count 6.9 K/mcL (4.3-11.1)
[2019-11-01 06:21] LABS: Hemoglobin 8.1 g/dL (11.5-15.4)
[2019-11-01 06:44] LABS: BUN/Creatinine Ratio 17 (6-26); Blood Urea Nitrogen 5 mg/dL (6-20); Calcium 8.3 mg/dL (8.6-10.3); Carbon Dioxide 30 mEq/L (23-29); Chloride 98 mEq/L (98-107); Glucose 145 mg/dL (70-105); Magnesium 1.8 mg/dL (1.6-2.6); Osmolality,Calculated 280 (280-300); Phosphorous 2.6 mg/dL (2.7-4.5); Potassium 3.1 mEq/L (3.5-5.1); Sodium 135 mEq/L (136-145); eGFR For African Americans > 60 (> 60); eGFR For Non-African Americans > 60 (> 60)
[2019-11-01] MEDS: *HR* OxyCODONE Immed Rel 5 MG TABLET PO PRN ×3 (09:18→22:04)
[2019-11-01] MEDS: Cholecalciferol (D-3) 1,000 UNIT (25MCG) TABLET PO SCH (09:19)
[2019-11-01] MEDS: FLUoxetine 20 MG CAPSULE PO SCH (09:19)
[2019-11-01] MEDS: Gabapentin 400 MG CAPSULE PO SCH ×3 (09:19→20:58)
[2019-11-01] MEDS: Multivit/Ca/Min/Fe/FA 1 TAB TABLET PO SCH (09:19)
[2019-11-01 09:58] LABS: Hematocrit 29.9 % (35.3-44.9); Hemoglobin 9.3 g/dL (11.5-15.4)
[2019-11-01] MEDS: Ringers Solution, Lactated 1,000 ML IVC SCH (11:03)
[2019-11-01] MEDS: *HR* OxyCODONE ER (12 HR) 10 MG TABLET PO SCH ×2 (11:03→20:58)
[2019-11-01] MEDS: DAPTOmycin 300 MG in 0.9 % Sodium Chloride 100 ML IVPB SCH (17:28)
[2019-11-02] MEDS: Piperacillin/Tazobactam 3.375 GM in 0.9 % Sodium Chloride Mini Bag 100 ML IVPB SCH ×2 (00:15→07:54)
[2019-11-02] MEDS: Ringers Solution, Lactated 1,000 ML IVC SCH ×2 (00:16→13:24)
[2019-11-02] MEDS: *HR* Heparin 5,000 UNIT/ML VIAL SQ SCH ×2 (06:22→18:12)
[2019-11-02 06:51] LABS: Basophils % 0.4 %; Eosinophils # 0.1 K/mcL (0.0-0.6); Eosinophils % 2.2 %; Hematocrit 27.3 % (35.3-44.9); Hemoglobin 8.1 g/dL (11.5-15.4); Immature Granulocytes % 0.4 % (0-4); Lymphocytes # 1.3 K/mcL (0.6-4.6); Lymphocytes % 23.1 %; Mean Corpuscular HGB Conc 29.7 g/dL (31.6-35.5); Mean Corpuscular Hemoglobin 25.2 pg (28.0-33.3); Mean Platelet Volume 9.6 fL (9.4-12.4); Monocytes # 0.3 K/mcL (0.0-1.3); Monocytes % 5.9 %; Neutrophils # 3.8 K/mcL (1.6-8.9); Platelet Count 216 K/mcL (140-400); Red Blood Count 3.21 M/mcL (3.82-4.97); Red Cell Distribution Width 20.4 % (11.5-14.5); White Blood Count 5.6 K/mcL (4.3-11.1)
[2019-11-02 07:12] LABS: Magnesium 1.6 mg/dL (1.6-2.6)
[2019-11-02 07:14] LABS: BUN/Creatinine Ratio 11 (6-26); Blood Urea Nitrogen 5 mg/dL (6-20); Calcium 8.1 mg/dL (8.6-10.3); Carbon Dioxide 31 mEq/L (23-29); Chloride 97 mEq/L (98-107); Glucose 136 mg/dL (70-105); Osmolality,Calculated 281 (280-300); Potassium 3.5 mEq/L (3.5-5.1); Sodium 136 mEq/L (136-145); eGFR For African Americans > 60 (> 60); eGFR For Non-African Americans > 60 (> 60)
[2019-11-02] MEDS: Gabapentin 400 MG CAPSULE PO SCH ×3 (07:53→20:11)
[2019-11-02] MEDS: Cholecalciferol (D-3) 1,000 UNIT (25MCG) TABLET PO SCH (07:53)
[2019-11-02] MEDS: FLUoxetine 20 MG CAPSULE PO SCH (07:53)
[2019-11-02] MEDS: Multivit/Ca/Min/Fe/FA 1 TAB TABLET PO SCH (07:53)
[2019-11-02] MEDS: *HR* OxyCODONE ER (12 HR) 10 MG TABLET PO SCH ×2 (07:54→20:11)
[2019-11-02] MEDS: *HR* OxyCODONE Immed Rel 5 MG TABLET PO PRN ×3 (10:48→23:51)
[2019-11-02] MEDS: Meropenem 500 MG in Water for inj. (sterile) 10 ML IVPB SCH ×2 (16:04→23:52)
[2019-11-02] MEDS: DAPTOmycin 300 MG in 0.9 % Sodium Chloride 100 ML IVPB SCH (18:11)
[2019-11-03] MEDS: Ringers Solution, Lactated 1,000 ML IVC SCH ×2 (03:11→17:53)
[2019-11-03 05:46] LABS: Basophils % 0.6 %; Eosinophils # 0.2 K/mcL (0.0-0.6); Eosinophils % 2.8 %; Hemoglobin 7.7 g/dL (11.5-15.4); Immature Granulocytes % 0.2 % (0-4); Lymphocytes # 1.8 K/mcL (0.6-4.6); Lymphocytes % 34.7 %; Mean Corpuscular HGB Conc 30.8 g/dL (31.6-35.5); Mean Corpuscular Hemoglobin 25.2 pg (28.0-33.3); Mean Platelet Volume 9.8 fL (9.4-12.4); Monocytes # 0.4 K/mcL (0.0-1.3); Monocytes % 6.8 %; Neutrophils # 2.9 K/mcL (1.6-8.9); Platelet Count 210 K/mcL (140-400); Red Blood Count 3.05 M/mcL (3.82-4.97); Red Cell Distribution Width 20.5 % (11.5-14.5); Segmented Neutrophils % 54.9 %; White Blood Count 5.3 K/mcL (4.3-11.1)
[2019-11-03 06:12] LABS: BUN/Creatinine Ratio 19 (6-26); Blood Urea Nitrogen 7 mg/dL (6-20); Calcium 7.9 mg/dL (8.6-10.3); Carbon Dioxide 28 mEq/L (23-29); Chloride 98 mEq/L (98-107); Glucose 111 mg/dL (70-105); Osmolality,Calculated 281 (280-300); Potassium 3.2 mEq/L (3.5-5.1); Sodium 136 mEq/L (136-145); eGFR For African Americans > 60 (> 60); eGFR For Non-African Americans > 60 (> 60)
[2019-11-03] MEDS: *HR* Heparin 5,000 UNIT/ML VIAL SQ SCH ×2 (06:27→18:16)
[2019-11-03] MEDS: *HR* OxyCODONE Immed Rel 5 MG TABLET PO PRN ×2 (07:39→15:25)
[2019-11-03] MEDS: FLUoxetine 20 MG CAPSULE PO SCH (07:39)
[2019-11-03] MEDS: Cholecalciferol (D-3) 1,000 UNIT (25MCG) TABLET PO SCH (07:40)
[2019-11-03] MEDS: Multivit/Ca/Min/Fe/FA 1 TAB TABLET PO SCH (07:40)
[2019-11-03] MEDS: Meropenem 500 MG in Water for inj. (sterile) 10 ML IVPB SCH (07:41)
[2019-11-03] MEDS: Gabapentin 400 MG CAPSULE PO SCH ×3 (08:13→20:22)
[2019-11-03] MEDS: *HR* OxyCODONE ER (12 HR) 10 MG TABLET PO SCH ×2 (08:13→20:23)
[2019-11-03] MEDS ORDERED: Meropenem 1,000 MG in 0.9 % Sodium Chloride Mini Bag 100 ML IVPB SCH (16:00)
[2019-11-03] MEDS: DAPTOmycin 300 MG in 0.9 % Sodium Chloride 100 ML IVPB SCH (17:53)
[2019-11-03] MEDS: Ertapenem 1,000 MG in 0.9 % Sodium Chloride Mini Bag 100 ML IVPB SCH (20:22)
[2019-11-04] MEDS: Ringers Solution, Lactated 1,000 ML IVC SCH ×4 (01:05→20:57)
[2019-11-04] MEDS: *HR* OxyCODONE Immed Rel 5 MG TABLET PO PRN ×3 (01:28→16:17)
[2019-11-04 02:24] LABS: Basophils % 0.4 %; Eosinophils # 0.2 K/mcL (0.0-0.6); Eosinophils % 2.9 %; Hematocrit 28.3 % (35.3-44.9); Hemoglobin 8.6 g/dL (11.5-15.4); Immature Granulocytes % 0.7 % (0-4); Immature Platelets 3.9 % (1.1-6.1); Lymphocytes # 2.3 K/mcL (0.6-4.6); Mean Corpuscular HGB Conc 30.4 g/dL (31.6-35.5); Mean Corpuscular Hemoglobin 25.4 pg (28.0-33.3); Mean Corpuscular Volume 83.5 fL (83.0-100.0); Mean Platelet Volume 9.8 fL (9.4-12.4); Monocytes # 0.3 K/mcL (0.0-1.3); Monocytes % 4.6 %; Platelet Count 259 K/mcL (140-400); Red Blood Count 3.39 M/mcL (3.82-4.97); Red Cell Distribution Width 20.8 % (11.5-14.5); Segmented Neutrophils % 57.4 %; White Blood Count 6.9 K/mcL (4.3-11.1)
[2019-11-04 02:48] LABS: BUN/Creatinine Ratio 24 (6-26); Blood Urea Nitrogen 8 mg/dL (6-20); Calcium 8.2 mg/dL (8.6-10.3); Carbon Dioxide 28 mEq/L (23-29); Chloride 97 mEq/L (98-107); Glucose 114 mg/dL (70-105); Osmolality,Calculated 279 (280-300); Potassium 3.7 mEq/L (3.5-5.1); Sodium 135 mEq/L (136-145); eGFR For African Americans > 60 (> 60); eGFR For Non-African Americans > 60 (> 60)
[2019-11-04] MEDS: *HR* Heparin 5,000 UNIT/ML VIAL SQ SCH ×2 (05:39→18:49)
[2019-11-04] MEDS: Ertapenem 1,000 MG in 0.9 % Sodium Chloride Mini Bag 100 ML IVPB SCH (09:26)
[2019-11-04] MEDS: Multivit/Ca/Min/Fe/FA 1 TAB TABLET PO SCH (09:50)
[2019-11-04] MEDS: Cholecalciferol (D-3) 1,000 UNIT (25MCG) TABLET PO SCH (09:50)
[2019-11-04] MEDS: *HR* OxyCODONE ER (12 HR) 10 MG TABLET PO SCH ×2 (09:50→20:57)
[2019-11-04] MEDS: FLUoxetine 20 MG CAPSULE PO SCH (09:50)
[2019-11-04] MEDS: Gabapentin 400 MG CAPSULE PO SCH ×3 (09:50→20:57)
[2019-11-04] MEDS: DAPTOmycin 300 MG in 0.9 % Sodium Chloride 100 ML IVPB SCH (18:48)
[2019-11-05] MEDS ORDERED: Acetaminophen IV 500 MG/50 ML INFUS..BTL IVPB ONE (04:09)
[2019-11-05] MEDS: *HR* Heparin 5,000 UNIT/ML VIAL SQ SCH (05:37)
[2019-11-05 07:01] LABS: BUN/Creatinine Ratio 23 (6-26); Blood Urea Nitrogen 7 mg/dL (6-20); Calcium 8.3 mg/dL (8.6-10.3); Carbon Dioxide 30 mEq/L (23-29); Chloride 99 mEq/L (98-107); Glucose 105 mg/dL (70-105); Osmolality,Calculated 286 (280-300); Potassium 3.1 mEq/L (3.5-5.1); Sodium 139 mEq/L (136-145); eGFR For African Americans > 60 (> 60); eGFR For Non-African Americans > 60 (> 60)
[2019-11-05] MEDS: Ertapenem 1,000 MG in 0.9 % Sodium Chloride Mini Bag 100 ML IVPB SCH (10:14)
[2019-11-05] MEDS: Cholecalciferol (D-3) 1,000 UNIT (25MCG) TABLET PO SCH (10:15)
[2019-11-05] MEDS: *HR* OxyCODONE ER (12 HR) 10 MG TABLET PO SCH (10:15)
[2019-11-05] MEDS: Gabapentin 400 MG CAPSULE PO SCH ×2 (10:15→16:15)
[2019-11-05] MEDS: FLUoxetine 20 MG CAPSULE PO SCH (10:15)
[2019-11-05] MEDS: Multivit/Ca/Min/Fe/FA 1 TAB TABLET PO SCH (10:15)
[2019-11-05] MEDS ORDERED: *HR* OxyCODONE Immed Rel 5 MG TABLET PO PRN (10:17)
[2019-11-05] MEDS: *HR* OxyCODONE Immed Rel 5 MG TABLET PO PRN (10:28)
[2019-11-05] MEDS: Ringers Solution, Lactated 1,000 ML IVC SCH (11:26)
[2019-11-05 16:15] VITALS: BP 100/62
== END 2019-11-05 18:00 | disposition short-term general hospital (02) | DRG 710 ==
LOC: EMEROOARM 12:28 → 2ANU 12:28 → SUATTDRO 14:58 → 2ANU 16:58 → SUATTDRO 11-01 17:22
PROVIDERS: ADMIT Internal Medicine; ATTEND Family Medicine

== ENCOUNTER 2021-04-20 13:47 | Inpatient (IN) ==
[2021-04-20] MEDS ORDERED: Piperacillin/Tazobactam 3.375 GM in 0.9 % Sodium Chloride Mini Bag 100 ML IVPB ONE (14:03)
[2021-04-20 14:24] LABS: Hematocrit 16.8 % (35.3-44.9)
[2021-04-20 14:25] LABS: Mean Corpuscular HGB Conc 28.6 g/dL (31.6-35.5); Mean Corpuscular Hemoglobin 22.9 pg (28.0-33.3); Mean Platelet Volume 9.8 fL (9.4-12.4); Platelet Count 433 K/mcL (140-400); White Blood Count 9.1 K/mcL (4.3-11.1)
[2021-04-20 14:28] LABS: INR 1.1; Prothrombin Time 12.8 Seconds (9.4-12.1)
[2021-04-20 14:31] LABS: Activated Partial Thrombo Time 24.7 Seconds (26.0-36.0)
[2021-04-20 14:43] LABS: Hemoglobin 4.8 g/dL (11.5-15.4)
[2021-04-20 14:45] LABS: Alanine Aminotransferase 8 Units/L (7-52); Albumin 2.2 g/dL (3.5-5.7); Albumin/Globulin Ratio 0.5 (1.1-2.2); Alkaline Phosphatase 153 Units/L (34-104); Aspartate Amino Transferase 14 Units/L (13-39); BUN/Creatinine Ratio 43 (6-26); Bilirubin,Direct 0.2 mg/dL (0.0-0.2); Bilirubin,Indirect 0.2 mg/dL (0.0-1.0); Bilirubin,Total 0.4 mg/dL (0.3-1.0); Blood Urea Nitrogen 30 mg/dL (6-20); Calcium 7.6 mg/dL (8.6-10.3); Carbon Dioxide 14 mEq/L (23-29); Chloride 105 mEq/L (98-107); Globulin 4.7 g/dL (2.4-3.5); Glucose 83 mg/dL (70-105); Magnesium 1.4 mg/dL (1.6-2.6); Osmolality,Calculated 277 (280-300); Phosphorous 3.8 mg/dL (2.7-4.5); Potassium 3.5 mEq/L (3.5-5.1); Sodium 131 mEq/L (136-145); Total Protein 6.9 g/dL (6.4-8.9); Troponin I < 0.03 ng/mL (< 0.04); eGFR For African Americans > 60 (> 60); eGFR For Non-African Americans > 60 (> 60)
[2021-04-20] MEDS ORDERED: *HR* Midazolam HCl 2 MG/2 ML VIAL IVP ONE (14:52)
[2021-04-20] MEDS ORDERED: 0.9 % Sodium Chloride 250 ML ONE ×3 (14:53→21:42)
[2021-04-20] MEDS ORDERED: *HR* Midazolam HCl 2 MG/2 ML VIAL ONE (14:53)
[2021-04-20] MEDS ORDERED: *HR* Norepinephrine 4 MG/4 ML VIAL IVC ONE (14:54)
[2021-04-20 14:56] LABS: Anisocytosis 3+ (Not Present); Hypochromasia Present (Not Present); Lymphocytes # 0.6 K/mcL (0.6-4.6); Monocytes # 0.1 K/mcL (0.0-1.3); Neutrophils # 8.4 K/mcL (1.6-8.9); Platelet Estimate Increased (Normal)
[2021-04-20] MEDS: Norepinephrine 4 MG/254 ML IV.SOLN IVC SCH ×2 (14:57→22:25)
[2021-04-20] MEDS ORDERED: Isovue-370 500 ML BOTTLE IVP ONE (15:32)
[2021-04-20] MEDS ORDERED: *HR* FentaNYL (PF) 100 MCG/2 ML VIAL IVP ONE ×2 (16:14→21:14)
[2021-04-20 17:02] LABS: Bacteria,Urine Moderate per hpf (None-Few); Bilirubin,Urine Negative (Negative); Blood,Urine Negative (Negative); Budding Yeast,Urine Few per hpf (None Seen); Clarity,Urine Ex.Turbid (Clear); Color,Urine Yellow (Yellow); Glucose,Urine (UA) Normal (Normal); Ketones,Urine Negative (Negative); Leukocyte Esterase,Urine Moderate (Negative); Nitrite,Urine Negative (Negative); PH,Urine 8.5 pH Units (5.0-8.0); Protein,Urine 200 mg/dL (Neg-Trace); RBC,Urine 0-3 per hpf (0-3); Specific Gravity,Urine 1.017 (1.010-1.025); Urobilinogen,Urine Normal (Normal)
[2021-04-20] MEDS ORDERED: Naloxone 0.4 MG/ML INJ IVP PRN (21:00)
[2021-04-20] MEDS: Pantoprazole 40 MG in 0.9 % Sodium Chloride Mini Bag 100 ML IVC SCH (21:50)
[2021-04-20] MEDS ORDERED: D5% in Water 1,000 ML IVC PRN (22:10)
[2021-04-20] MEDS ORDERED: Dextrose Gel 15 GM/37.5 ML TUBE PO PRN ×2 (22:10)
[2021-04-20] MEDS ORDERED: *HR* Dextrose 50 % in Water (Vial) 50 ML VIAL IVP PRN (22:10)
[2021-04-21] MEDS: Piperacillin/Tazobactam 3.375 GM in 0.9 % Sodium Chloride Mini Bag 100 ML IVPB SCH ×4 (00:36→23:02)
[2021-04-21] MEDS: Pantoprazole 40 MG in 0.9 % Sodium Chloride Mini Bag 100 ML IVC SCH ×5 (02:13→23:02)
[2021-04-21 04:51] LABS: Red Blood Count 3.31 M/mcL (3.82-4.97)
[2021-04-21 04:52] LABS: Basophils % 0.1 %
[2021-04-21 04:53] LABS: Hematocrit 26.4 % (35.3-44.9); Hemoglobin 8.1 g/dL (11.5-15.4); Immature Granulocytes % 1.8 % (0-4); Lymphocytes # 0.8 K/mcL (0.6-4.6); Lymphocytes % 2.9 %; Mean Corpuscular HGB Conc 30.7 g/dL (31.6-35.5); Mean Corpuscular Hemoglobin 24.5 pg (28.0-33.3); Mean Corpuscular Volume 79.8 fL (83.0-100.0); Mean Platelet Volume 9.5 fL (9.4-12.4); Monocytes # 0.6 K/mcL (0.0-1.3); Neutrophils # 26.8 K/mcL (1.6-8.9); Platelet Count 317 K/mcL (140-400); Red Cell Distribution Width 18.5 % (11.5-14.5); Segmented Neutrophils % 93.2 %; White Blood Count 28.7 K/mcL (4.3-11.1)
[2021-04-21 05:20] LABS: BUN/Creatinine Ratio 44 (6-26); Blood Urea Nitrogen 36 mg/dL (6-20); C-Reactive Protein 260 mg/L (Less than 10); Calcium 7.3 mg/dL (8.6-10.3); Carbon Dioxide 9 mEq/L (23-29); Chloride 105 mEq/L (98-107); Glucose 139 mg/dL (70-105); Magnesium 1.5 mg/dL (1.6-2.6); Osmolality,Calculated 283 (280-300); Potassium 3.6 mEq/L (3.5-5.1); Sodium 131 mEq/L (136-145); eGFR For African Americans > 60 (> 60); eGFR For Non-African Americans > 60 (> 60)
[2021-04-21] MEDS: Norepinephrine 4 MG/254 ML IV.SOLN IVC SCH ×3 (05:40→18:26)
[2021-04-21 05:46] LABS: Platelet Estimate Normal (Normal)
[2021-04-21] MEDS ORDERED: Perflutren Lipid Microsphere 1.3 ML in 0.9 % Sodium Chloride 8.7 ML IVP PRN (07:54)
[2021-04-21] MEDS: Potassium Chloride 40 MEQ/200 ML BAG IVPB PRN (08:42)
[2021-04-21 08:55] LABS: Acinetobacter baumannii by PCR Not Detected (Not Detect); Enterobacter cloacae Cmplx PCR Not Detected (Not Detect); Enterococcus by PCR Not Detected (Not Detect); Staphylococcus aureus by PCR Not Detected (Not Detect); Staphylococcus by PCR Not Detected (Not Detect); Streptococcus agalactiae(B)PCR Not Detected (Not Detect); Streptococcus by PCR Not Detected (Not Detect); Streptococcus pneumoniae PCR Not Detected (Not Detect); Streptococcus pyogenes (A) PCR Not Detected (Not Detect)
[2021-04-21 08:56] LABS: Candida albicans by PCR Not Detected (Not Detect); Candida glabrata by PCR Not Detected (Not Detect); Candida krusei by PCR Not Detected (Not Detect); Candida parapsilosis by PCR Not Detected (Not Detect); Candida tropicalis by PCR Not Detected (Not Detect); Escherichia coli by PCR DETECTED (Not Detect); Klebsiella oxytoca by PCR Not Detected (Not Detect); Klebsiella pneumoniae by PCR Not Detected (Not Detect); Proteus by PCR Not Detected (Not Detect); Pseudomonas aeruginosa by PCR Not Detected (Not Detect); Serratia marcescens by PCR Not Detected (Not Detect)
[2021-04-21] MEDS: Sodium Bicarbonate 150 MEQ in D5% in Water 1,000 ML IVC SCH (11:33)
[2021-04-21 13:10] LABS: Adenovirus Not Detected (Not Detect); Bordetella Pertussis Not Detected (Not Detect); Chlamydophila pneumoniae Not Detected (Not Detect); Coronavirus 229E Not Detected (Not Detect); Coronavirus HKU1 Not Detected (Not Detect); Coronavirus NL63 Not Detected (Not Detect); Coronavirus OC43 Not Detected (Not Detect); Human Metapneumovirus Not Detected (Not Detect); Human Rhinovirus/Enterovirus Not Detected (Not Detect); Influenza A Subtype 2009 H1 Not Detected (Not Detect); Influenza B Not Detected (Not Detect); Mycoplasma pneumoniae Not Detected (Not Detect); Parainfluenza Virus 1 Not Detected (Not Detect); Parainfluenza Virus 2 Not Detected (Not Detect); Parainfluenza Virus 3 Not Detected (Not Detect); Parainfluenza Virus 4 Not Detected (Not Detect); Respiratory Syncytial Virus Not Detected (Not Detect); SARS-CoV-2 Not Detected (Not Detect)
[2021-04-21 14:48] LABS: BUN/Creatinine Ratio 43 (6-26); Blood Urea Nitrogen 38 mg/dL (6-20); Calcium 7.4 mg/dL (8.6-10.3); Carbon Dioxide 11 mEq/L (23-29); Chloride 106 mEq/L (98-107); Glucose 129 mg/dL (70-105); Magnesium 2.2 mg/dL (1.6-2.6); Osmolality,Calculated 279 (280-300); Potassium 4.5 mEq/L (3.5-5.1); Sodium 129 mEq/L (136-145); eGFR For African Americans > 60 (> 60); eGFR For Non-African Americans > 60 (> 60)
[2021-04-21] MEDS: Albumin 25% 12.5gm/50mL 12.5 GM/50 ML IV.SOLN IVPB SCH ×2 (15:33→21:38)
[2021-04-21] MEDS ORDERED: diazePAM 5 MG TABLET PO PRN (15:53)
[2021-04-21] MEDS: *HR* OxyCODONE ER (12 HR) 10 MG TABLET PO SCH ×2 (16:32→23:02)
[2021-04-21] MEDS ORDERED: SODIUM CHLORIDE/NAHCO3/KCL/PEG 4,000 ML SOLN.RECON PO ONE (17:00)
[2021-04-21 17:10] LABS: BUN/Creatinine Ratio 42 (6-26); Blood Urea Nitrogen 37 mg/dL (6-20); Calcium 7.1 mg/dL (8.6-10.3); Carbon Dioxide 13 mEq/L (23-29); Chloride 105 mEq/L (98-107); Glucose 172 mg/dL (70-105); Magnesium 1.9 mg/dL (1.6-2.6); Osmolality,Calculated 285 (280-300); Sodium 131 mEq/L (136-145); eGFR For African Americans > 60 (> 60); eGFR For Non-African Americans > 60 (> 60)
[2021-04-21 22:19] LABS: BUN/Creatinine Ratio 43 (6-26); Blood Urea Nitrogen 36 mg/dL (6-20); Calcium 6.9 mg/dL (8.6-10.3); Carbon Dioxide 16 mEq/L (23-29); Chloride 104 mEq/L (98-107); Glucose 197 mg/dL (70-105); Magnesium 1.7 mg/dL (1.6-2.6); Osmolality,Calculated 284 (280-300); Potassium 3.5 mEq/L (3.5-5.1); Sodium 130 mEq/L (136-145); eGFR For African Americans > 60 (> 60); eGFR For Non-African Americans > 60 (> 60)
[2021-04-21] MEDS: Gabapentin 300 MG CAPSULE PO SCH (23:01)
[2021-04-22] MEDS ORDERED: Acetaminophen 325 MG TABLET PO PRN (00:09)
[2021-04-22] MEDS: Sodium Bicarbonate 150 MEQ in D5% in Water 1,000 ML IVC SCH ×2 (00:55→12:35)
[2021-04-22] MEDS: Norepinephrine 4 MG/254 ML IV.SOLN IVC SCH ×3 (02:02→18:48)
[2021-04-22] MEDS: Pantoprazole 40 MG in 0.9 % Sodium Chloride Mini Bag 100 ML IVC SCH ×5 (04:02→22:10)
[2021-04-22 04:34] LABS: VBG Ionized Calcium 1.07 mmol/L (1.15-1.35)
[2021-04-22 04:59] LABS: Hematocrit 21.5 % (35.3-44.9); Hemoglobin 6.8 g/dL (11.5-15.4); Mean Corpuscular HGB Conc 31.6 g/dL (31.6-35.5); Mean Corpuscular Hemoglobin 24.6 pg (28.0-33.3); Mean Corpuscular Volume 77.9 fL (83.0-100.0); Mean Platelet Volume 9.6 fL (9.4-12.4); Platelet Count 174 K/mcL (140-400); Red Blood Count 2.76 M/mcL (3.82-4.97); Red Cell Distribution Width 18.3 % (11.5-14.5); White Blood Count 16.1 K/mcL (4.3-11.1)
[2021-04-22 05:17] LABS: BUN/Creatinine Ratio 43 (6-26); Blood Urea Nitrogen 35 mg/dL (6-20); Calcium 6.9 mg/dL (8.6-10.3); Carbon Dioxide 19 mEq/L (23-29); Chloride 104 mEq/L (98-107); Glucose 171 mg/dL (70-105); Magnesium 1.6 mg/dL (1.6-2.6); Osmolality,Calculated 286 (280-300); Phosphorous 3.6 mg/dL (2.7-4.5); Potassium 3.2 mEq/L (3.5-5.1); Sodium 132 mEq/L (136-145); eGFR For African Americans > 60 (> 60); eGFR For Non-African Americans > 60 (> 60)
[2021-04-22 05:35] LABS: Anisocytosis 1+ (Not Present); Hypochromasia Present (Not Present); Lymphocytes # 2.3 K/mcL (0.6-4.6); Monocytes # 0.3 K/mcL (0.0-1.3); Neutrophils # 13.5 K/mcL (1.6-8.9); Platelet Estimate Normal (Normal); Reactive Lymphocytes Present (Not Present)
[2021-04-22] MEDS ORDERED: 0.9 % Sodium Chloride 250 ML IVC SCH (06:15)
[2021-04-22] MEDS: Potassium Chloride 40 MEQ/200 ML BAG IVPB PRN (06:41)
[2021-04-22] MEDS: Calcium Gluconate 1gm/50mL 1 GM/50 ML BAG IVPB PRN ×2 (06:47→08:07)
[2021-04-22] MEDS: Piperacillin/Tazobactam 3.375 GM in 0.9 % Sodium Chloride Mini Bag 100 ML IVPB SCH ×3 (08:03→23:22)
[2021-04-22] MEDS: *HR* OxyCODONE ER (12 HR) 10 MG TABLET PO SCH ×3 (08:04→23:24)
[2021-04-22] MEDS: Gabapentin 300 MG CAPSULE PO SCH ×3 (08:04→20:09)
[2021-04-22] MEDS ORDERED: DAPTOmycin 300 MG in 0.9 % Sodium Chloride 100 ML IVPB SCH (09:00)
[2021-04-22] MEDS: Albumin 25% 12.5gm/50mL 12.5 GM/50 ML IV.SOLN IVPB SCH ×2 (09:16→20:28)
[2021-04-22 09:31] LABS: Creatine Kinase 16 Units/L (30-223)
[2021-04-23] MEDS: Norepinephrine 4 MG/254 ML IV.SOLN IVC SCH (00:07)
[2021-04-23] MEDS: Pantoprazole 40 MG in 0.9 % Sodium Chloride Mini Bag 100 ML IVC SCH ×5 (03:09→21:03)
[2021-04-23] MEDS: Piperacillin/Tazobactam 3.375 GM in 0.9 % Sodium Chloride Mini Bag 100 ML IVPB SCH ×3 (07:37→23:05)
[2021-04-23] MEDS: *HR* OxyCODONE ER (12 HR) 10 MG TABLET PO SCH ×2 (07:40→17:23)
[2021-04-23] MEDS: Gabapentin 300 MG CAPSULE PO SCH ×3 (07:41→20:01)
[2021-04-23] MEDS: Albumin 25% 12.5gm/50mL 12.5 GM/50 ML IV.SOLN IVPB SCH ×2 (09:16→20:02)
[2021-04-23] MEDS: DAPTOmycin 400 MG in 0.9 % Sodium Chloride 100 ML IVPB SCH (09:20)
[2021-04-24] MEDS: *HR* OxyCODONE ER (12 HR) 10 MG TABLET PO SCH (05:41)
[2021-04-24] MEDS: DAPTOmycin 400 MG in 0.9 % Sodium Chloride 100 ML IVPB SCH (08:05)
[2021-04-24] MEDS: Piperacillin/Tazobactam 3.375 GM in 0.9 % Sodium Chloride Mini Bag 100 ML IVPB SCH (08:05)
[2021-04-24] MEDS: Albumin 25% 12.5gm/50mL 12.5 GM/50 ML IV.SOLN IVPB SCH (08:05)
[2021-04-24] MEDS: Gabapentin 300 MG CAPSULE PO SCH (08:05)
[2021-04-24 08:48] VITALS: BP 88/54
== END 2021-04-24 10:49 | disposition hospice, home (50) | DRG 720 ==
LOC: EMEROOARM 13:47 → ICNU 13:47 → OBSVTOIN 19:26 → ICNU 21:58
PROVIDERS: ADMIT Internal Medicine; ATTEND Internal Medicine

== ENCOUNTER 2021-04-30 22:36 | Inpatient (IN) ==
[2021-04-30] MEDS ORDERED: 0.9 % Sodium Chloride 1,000 ML IVC ONE (22:47)
[2021-04-30 23:45] LABS: Basophils % 0.1 %; Eosinophils % 0.1 %; Immature Granulocytes % 0.8 % (0-4); Lymphocytes # 1.2 K/mcL (0.6-4.6); Lymphocytes % 9.8 %; Mean Corpuscular HGB Conc 30.9 g/dL (31.6-35.5); Mean Corpuscular Hemoglobin 24.1 pg (28.0-33.3); Mean Corpuscular Volume 78.2 fL (83.0-100.0); Mean Platelet Volume 10.2 fL (9.4-12.4); Monocytes # 0.3 K/mcL (0.0-1.3); Monocytes % 2.5 %; Neutrophils # 10.7 K/mcL (1.6-8.9); Platelet Count 176 K/mcL (140-400); Red Blood Count 1.74 M/mcL (3.82-4.97); Red Cell Distribution Width 17.8 % (11.5-14.5); Segmented Neutrophils % 86.7 %; White Blood Count 12.3 K/mcL (4.3-11.1)
[2021-04-30 23:55] LABS: Alanine Aminotransferase 12 Units/L (7-52); Albumin 1.8 g/dL (3.5-5.7); Albumin/Globulin Ratio 0.6 (1.1-2.2); Alkaline Phosphatase 120 Units/L (34-104); Aspartate Amino Transferase 21 Units/L (13-39); BUN/Creatinine Ratio 35 (6-26); Bilirubin,Direct 0.1 mg/dL (0.0-0.2); Bilirubin,Indirect 0.1 mg/dL (0.0-1.0); Bilirubin,Total 0.2 mg/dL (0.3-1.0); Blood Urea Nitrogen 25 mg/dL (6-20); Calcium 6.8 mg/dL (8.6-10.3); Carbon Dioxide 19 mEq/L (23-29); Chloride 102 mEq/L (98-107); Globulin 3.2 g/dL (2.4-3.5); Glucose 71 mg/dL (70-105); Magnesium 1.4 mg/dL (1.6-2.6); Osmolality,Calculated 271 (280-300); Potassium 3.3 mEq/L (3.5-5.1); Sodium 129 mEq/L (136-145); Troponin I < 0.03 ng/mL (< 0.04); eGFR For African Americans > 60 (> 60); eGFR For Non-African Americans > 60 (> 60)
[2021-04-30 23:58] LABS: Hematocrit 13.6 % (35.3-44.9); Hemoglobin 4.2 g/dL (11.5-15.4)
[2021-05-01] MEDS ORDERED: Ondansetron 4 MG/2 ML VIAL IVP PRN (01:06)
[2021-05-01] MEDS ORDERED: Ondansetron 4 MG/2 ML VIAL ONE ×2 (01:09→02:31)
[2021-05-01 01:37] LABS: Bilirubin,Urine Negative (Negative); Blood,Urine Moderate (Negative); Clarity,Urine Slightly Cloudy (Clear); Color,Urine Yellow (Yellow); Glucose,Urine (UA) Normal (Normal); Ketones,Urine Negative (Negative); Leukocyte Esterase,Urine Small (Negative); Nitrite,Urine Negative (Negative); Protein,Urine 30 mg/dL (Neg-Trace); Specific Gravity,Urine 1.015 (1.010-1.025); Urobilinogen,Urine Normal (Normal)
[2021-05-01] MEDS ORDERED: 0.9 % Sodium Chloride 1,000 ML IVC ONE (01:40)
[2021-05-01 01:44] LABS: Squamous Epithelial Cell,Urine Few per hpf (None-Few)
[2021-05-01 01:45] LABS: Bacteria,Urine Moderate per hpf (None-Few); Hyaline Casts,Urine Few per lpf (None Seen)
[2021-05-01] MEDS ORDERED: Magnesium Sulfate 1 GM/102 ML PIGGYBACK IVPB ONE (03:10)
[2021-05-01] MEDS ORDERED: Calcium Gluconate 1gm/50mL 1 GM/50 ML BAG IVPB ONE (03:10)
[2021-05-01] MEDS ORDERED: Piperacillin/Tazobactam 3.375 GM in Water for inj. (sterile) 20 ML IVP ONE (03:13)
[2021-05-01] MEDS ORDERED: Ondansetron 4 MG/2 ML VIAL IVP ONE (03:17)
[2021-05-01] MEDS: Norepinephrine 4 MG/254 ML IV.SOLN IVC SCH ×2 (03:33→15:00)
[2021-05-01] MEDS ORDERED: Naloxone 0.4 MG/ML INJ IVP PRN (04:39)
[2021-05-01] MEDS ORDERED: Potassium Chloride Elixir 20 MEQ/15 ML UDC PO ONE (05:50)
[2021-05-01] MEDS ORDERED: Dextrose Gel 15 GM/37.5 ML TUBE PO PRN ×2 (06:11)
[2021-05-01] MEDS ORDERED: *HR* Dextrose 50 % in Water (Vial) 50 ML VIAL IVP PRN (06:11)
[2021-05-01] MEDS ORDERED: D5% in Water 1,000 ML IVC PRN (06:11)
[2021-05-01] MEDS ORDERED: 0.9 % Sodium Chloride 250 ML ONE (06:25)
[2021-05-01] MEDS ORDERED: Nicotine 21 MG PATCH.TD24 TD PRN (06:47)
[2021-05-01] MEDS ORDERED: Potassium Chloride 40 MEQ, Lidocaine 1% 2 ML in 0.9 % Sodium Chloride 500 ML IVPB ONE (08:00)
[2021-05-01] MEDS: DAPTOmycin 300 MG in 0.9 % Sodium Chloride 100 ML IVPB SCH (08:52)
[2021-05-01 10:13] LABS: BUN/Creatinine Ratio 38 (6-26); Blood Urea Nitrogen 25 mg/dL (6-20); Carbon Dioxide 19 mEq/L (23-29); Chloride 101 mEq/L (98-107); Creatine Kinase 45 Units/L (30-223); Glucose 142 mg/dL (70-105); Osmolality,Calculated 273 (280-300); Potassium 3.2 mEq/L (3.5-5.1); Sodium 128 mEq/L (136-145); eGFR For African Americans > 60 (> 60); eGFR For Non-African Americans > 60 (> 60)
[2021-05-01 10:33] LABS: C-Reactive Protein > 300 mg/L (Less than 10)
[2021-05-01] MEDS: Piperacillin/Tazobactam 3.375 GM in 0.9 % Sodium Chloride Mini Bag 100 ML IVPB SCH ×2 (11:16→18:37)
[2021-05-01 11:37] LABS: Basophils % 0.2 %; Hematocrit 28.1 % (35.3-44.9); Hemoglobin 9.2 g/dL (11.5-15.4); Immature Granulocytes % 1.2 % (0-4); Lymphocytes # 1.1 K/mcL (0.6-4.6); Lymphocytes % 4.3 %; Mean Corpuscular HGB Conc 32.7 g/dL (31.6-35.5); Mean Corpuscular Hemoglobin 26.9 pg (28.0-33.3); Mean Corpuscular Volume 82.2 fL (83.0-100.0); Mean Platelet Volume 9.5 fL (9.4-12.4); Monocytes # 0.4 K/mcL (0.0-1.3); Monocytes % 1.6 %; Neutrophils # 24.4 K/mcL (1.6-8.9); Platelet Count 236 K/mcL (140-400); Red Blood Count 3.42 M/mcL (3.82-4.97); Red Cell Distribution Width 17.8 % (11.5-14.5); Segmented Neutrophils % 92.7 %; White Blood Count 26.3 K/mcL (4.3-11.1)
[2021-05-01 11:38] LABS: Basophils # 0.1 K/mcL (0.0-0.2)
[2021-05-01] MEDS: Insulin LISPRO 300 UNITS/3 ML VIAL SUBQ SCH ×4 (12:03→21:01)
[2021-05-01 14:22] LABS: VBG Ionized Calcium 1.06 mmol/L (1.15-1.35)
[2021-05-01 15:31] LABS: Basophils % 0.1 %; Hematocrit 28.3 % (35.3-44.9); Hemoglobin 9.1 g/dL (11.5-15.4); Immature Granulocytes % 0.9 % (0-4); Lymphocytes # 1.3 K/mcL (0.6-4.6); Lymphocytes % 5.9 %; Mean Corpuscular HGB Conc 32.2 g/dL (31.6-35.5); Mean Corpuscular Hemoglobin 26.8 pg (28.0-33.3); Mean Corpuscular Volume 83.2 fL (83.0-100.0); Mean Platelet Volume 9.6 fL (9.4-12.4); Monocytes # 0.3 K/mcL (0.0-1.3); Monocytes % 1.4 %; Neutrophils # 20.2 K/mcL (1.6-8.9); Platelet Count 206 K/mcL (140-400); Red Cell Distribution Width 17.6 % (11.5-14.5); Segmented Neutrophils % 91.7 %
[2021-05-01 15:35] LABS: Alanine Aminotransferase 11 Units/L (7-52); Albumin 1.9 g/dL (3.5-5.7); Albumin/Globulin Ratio 0.6 (1.1-2.2); Alkaline Phosphatase 133 Units/L (34-104); Aspartate Amino Transferase 16 Units/L (13-39); BUN/Creatinine Ratio 36 (6-26); Bilirubin,Total 0.5 mg/dL (0.3-1.0); Blood Urea Nitrogen 23 mg/dL (6-20); Calcium 6.7 mg/dL (8.6-10.3); Carbon Dioxide 19 mEq/L (23-29); Chloride 104 mEq/L (98-107); Globulin 3.4 g/dL (2.4-3.5); Glucose 106 mg/dL (70-105); Magnesium 1.5 mg/dL (1.6-2.6); Osmolality,Calculated 274 (280-300); Phosphorous 4.3 mg/dL (2.7-4.5); Potassium 4.1 mEq/L (3.5-5.1); Sodium 130 mEq/L (136-145); Total Protein 5.3 g/dL (6.4-8.9); eGFR For African Americans > 60 (> 60); eGFR For Non-African Americans > 60 (> 60)
[2021-05-01 17:34] LABS: Acinetobacter baumannii by PCR Not Detected (Not Detect); Candida albicans by PCR Not Detected (Not Detect); Candida glabrata by PCR Not Detected (Not Detect); Candida krusei by PCR Not Detected (Not Detect); Candida parapsilosis by PCR Not Detected (Not Detect); Candida tropicalis by PCR Not Detected (Not Detect); Enterobacter cloacae Cmplx PCR Not Detected (Not Detect); Enterococcus by PCR Not Detected (Not Detect); Escherichia coli by PCR DETECTED (Not Detect); Klebsiella oxytoca by PCR Not Detected (Not Detect); Klebsiella pneumoniae by PCR Not Detected (Not Detect); Proteus by PCR Not Detected (Not Detect); Pseudomonas aeruginosa by PCR Not Detected (Not Detect); Serratia marcescens by PCR Not Detected (Not Detect); Staphylococcus aureus by PCR Not Detected (Not Detect); Staphylococcus by PCR Not Detected (Not Detect); Streptococcus agalactiae(B)PCR Not Detected (Not Detect); Streptococcus by PCR Not Detected (Not Detect); Streptococcus pneumoniae PCR Not Detected (Not Detect); Streptococcus pyogenes (A) PCR Not Detected (Not Detect)
[2021-05-01] MEDS: Calcium Gluconate 1gm/50mL 1 GM/50 ML BAG IVPB SCH ×2 (18:36→20:43)
[2021-05-02] MEDS: Piperacillin/Tazobactam 3.375 GM in 0.9 % Sodium Chloride Mini Bag 100 ML IVPB SCH (03:46)
[2021-05-02 04:12] LABS: Basophils % 0.1 %; Eosinophils % 0.1 %; Hematocrit 25.9 % (35.3-44.9); Hemoglobin 8.3 g/dL (11.5-15.4); Immature Granulocytes % 0.9 % (0-4); Lymphocytes % 6.1 %; Mean Corpuscular Hemoglobin 26.6 pg (28.0-33.3); Mean Platelet Volume 9.5 fL (9.4-12.4); Monocytes # 0.2 K/mcL (0.0-1.3); Monocytes % 1.2 %; Neutrophils # 14.9 K/mcL (1.6-8.9); Platelet Count 170 K/mcL (140-400); Red Blood Count 3.12 M/mcL (3.82-4.97); Red Cell Distribution Width 17.7 % (11.5-14.5); Segmented Neutrophils % 91.6 %; White Blood Count 16.3 K/mcL (4.3-11.1)
[2021-05-02 04:25] LABS: VBG Ionized Calcium 1.16 mmol/L (1.15-1.35)
[2021-05-02 04:29] LABS: Alanine Aminotransferase 10 Units/L (7-52); Albumin/Globulin Ratio 0.6 (1.1-2.2); Alkaline Phosphatase 137 Units/L (34-104); Aspartate Amino Transferase 12 Units/L (13-39); BUN/Creatinine Ratio 29 (6-26); Bilirubin,Total 0.4 mg/dL (0.3-1.0); Blood Urea Nitrogen 23 mg/dL (6-20); Calcium 7.3 mg/dL (8.6-10.3); Carbon Dioxide 19 mEq/L (23-29); Chloride 101 mEq/L (98-107); Globulin 3.4 g/dL (2.4-3.5); Glucose 129 mg/dL (70-105); Magnesium 2.1 mg/dL (1.6-2.6); Osmolality,Calculated 269 (280-300); Potassium 3.7 mEq/L (3.5-5.1); Sodium 127 mEq/L (136-145); Total Protein 5.4 g/dL (6.4-8.9); eGFR For African Americans > 60 (> 60); eGFR For Non-African Americans > 60 (> 60)
[2021-05-02] MEDS: DAPTOmycin 300 MG in 0.9 % Sodium Chloride 100 ML IVPB SCH (06:38)
[2021-05-02] MEDS: Insulin LISPRO 300 UNITS/3 ML VIAL SUBQ SCH ×4 (08:20→21:03)
[2021-05-02] MEDS: Meropenem 1,000 MG in 0.9 % Sodium Chloride Mini Bag 100 ML IVPB SCH ×2 (11:50→21:02)
[2021-05-02] MEDS ORDERED: Sennosides 8.6 MG TABLET PO PRN (14:34)
[2021-05-02] MEDS ORDERED: diazePAM 5 MG TABLET PO SCH (15:00)
[2021-05-02] MEDS: Gabapentin 400 MG CAPSULE PO SCH ×2 (17:35→21:03)
[2021-05-02] MEDS: *HR* OxyCODONE ER (12 HR) 10 MG TABLET PO SCH (17:35)
[2021-05-02] MEDS: diazePAM 2 MG TABLET PO SCH (21:03)
[2021-05-02] MEDS: Loratadine 10 MG TABLET PO SCH (21:48)
[2021-05-02] MEDS: Norepinephrine 4 MG/254 ML IV.SOLN IVC SCH (22:57)
[2021-05-03] MEDS: Gabapentin 400 MG CAPSULE PO SCH ×6 (00:32→20:38)
[2021-05-03] MEDS: diazePAM 2 MG TABLET PO SCH ×7 (03:11→20:39)
[2021-05-03 03:50] LABS: Basophils % 0.1 %; Eosinophils % 0.1 %; Hematocrit 21.9 % (35.3-44.9); Hemoglobin 7.4 g/dL (11.5-15.4); Immature Granulocytes % 1.1 % (0-4); Lymphocytes # 0.9 K/mcL (0.6-4.6); Lymphocytes % 6.9 %; Mean Corpuscular HGB Conc 33.8 g/dL (31.6-35.5); Mean Corpuscular Hemoglobin 27.9 pg (28.0-33.3); Mean Corpuscular Volume 82.6 fL (83.0-100.0); Mean Platelet Volume 10.2 fL (9.4-12.4); Monocytes # 0.2 K/mcL (0.0-1.3); Monocytes % 1.6 %; Neutrophils # 11.6 K/mcL (1.6-8.9); Platelet Count 127 K/mcL (140-400); Red Blood Count 2.65 M/mcL (3.82-4.97); Red Cell Distribution Width 18.4 % (11.5-14.5); Segmented Neutrophils % 90.2 %; White Blood Count 12.8 K/mcL (4.3-11.1)
[2021-05-03 04:10] LABS: BUN/Creatinine Ratio 31 (6-26); Blood Urea Nitrogen 22 mg/dL (6-20); Calcium 7.2 mg/dL (8.6-10.3); Carbon Dioxide 19 mEq/L (23-29); Chloride 104 mEq/L (98-107); Glucose 114 mg/dL (70-105); Magnesium 1.9 mg/dL (1.6-2.6); Osmolality,Calculated 270 (280-300); Potassium 3.6 mEq/L (3.5-5.1); Sodium 128 mEq/L (136-145); eGFR For African Americans > 60 (> 60); eGFR For Non-African Americans > 60 (> 60)
[2021-05-03] MEDS: Meropenem 1,000 MG in 0.9 % Sodium Chloride Mini Bag 100 ML IVPB SCH ×3 (05:13→20:23)
[2021-05-03] MEDS: *HR* OxyCODONE ER (12 HR) 10 MG TABLET PO SCH ×2 (06:26→17:17)
[2021-05-03] MEDS: FLUoxetine 20 MG CAPSULE PO SCH (08:15)
[2021-05-03] MEDS: Loratadine 10 MG TABLET PO SCH (08:15)
[2021-05-03] MEDS: Insulin LISPRO 300 UNITS/3 ML VIAL SUBQ SCH ×4 (08:37→20:23)
[2021-05-03] MEDS: Norepinephrine 4 MG/254 ML IV.SOLN IVC SCH (23:13)
[2021-05-04 03:40] LABS: Basophils % 0.1 %; Eosinophils % 0.1 %; Hematocrit 24.5 % (35.3-44.9); Hemoglobin 7.9 g/dL (11.5-15.4); Immature Granulocytes % 1.2 % (0-4); Lymphocytes # 1.3 K/mcL (0.6-4.6); Lymphocytes % 8.3 %; Mean Corpuscular HGB Conc 32.2 g/dL (31.6-35.5); Mean Corpuscular Hemoglobin 26.9 pg (28.0-33.3); Mean Corpuscular Volume 83.3 fL (83.0-100.0); Mean Platelet Volume 9.9 fL (9.4-12.4); Monocytes # 0.3 K/mcL (0.0-1.3); Monocytes % 1.8 %; Neutrophils # 13.3 K/mcL (1.6-8.9); Platelet Count 151 K/mcL (140-400); Red Blood Count 2.94 M/mcL (3.82-4.97); Red Cell Distribution Width 18.5 % (11.5-14.5); Segmented Neutrophils % 88.5 %
[2021-05-04] MEDS: Meropenem 1,000 MG in 0.9 % Sodium Chloride Mini Bag 100 ML IVPB SCH ×3 (03:47→20:38)
[2021-05-04 04:00] LABS: BUN/Creatinine Ratio 31 (6-26); Blood Urea Nitrogen 23 mg/dL (6-20); Calcium 7.3 mg/dL (8.6-10.3); Carbon Dioxide 20 mEq/L (23-29); Chloride 105 mEq/L (98-107); Glucose 82 mg/dL (70-105); Magnesium 1.9 mg/dL (1.6-2.6); Osmolality,Calculated 275 (280-300); Potassium 3.5 mEq/L (3.5-5.1); Sodium 131 mEq/L (136-145); eGFR For African Americans > 60 (> 60); eGFR For Non-African Americans > 60 (> 60)
[2021-05-04] MEDS: *HR* OxyCODONE ER (12 HR) 10 MG TABLET PO SCH ×2 (06:17→16:15)
[2021-05-04] MEDS: Insulin LISPRO 300 UNITS/3 ML VIAL SUBQ SCH ×4 (08:10→20:39)
[2021-05-04] MEDS: diazePAM 2 MG TABLET PO SCH ×4 (08:10→20:39)
[2021-05-04] MEDS: FLUoxetine 20 MG CAPSULE PO SCH (08:21)
[2021-05-04] MEDS: Gabapentin 400 MG CAPSULE PO SCH ×4 (08:22→20:38)
[2021-05-04] MEDS: Loratadine 10 MG TABLET PO SCH (08:22)
[2021-05-04] MEDS: D5% in 0.45% NACL 1,000 ML IVC SCH (16:14)
[2021-05-04] MEDS: Colistin (Colistimethate) 150 MG in 0.9 % Sodium Chloride 50 ML IVPB SCH (17:53)
[2021-05-05] MEDS: Norepinephrine 4 MG/254 ML IV.SOLN IVC SCH (00:08)
[2021-05-05] MEDS: Meropenem 1,000 MG in 0.9 % Sodium Chloride Mini Bag 100 ML IVPB SCH ×2 (03:29→11:42)
[2021-05-05 03:37] LABS: Hematocrit 25.8 % (35.3-44.9); Hemoglobin 8.3 g/dL (11.5-15.4); Mean Corpuscular HGB Conc 32.2 g/dL (31.6-35.5); Mean Corpuscular Hemoglobin 27.1 pg (28.0-33.3); Mean Corpuscular Volume 84.3 fL (83.0-100.0); Mean Platelet Volume 9.5 fL (9.4-12.4); Platelet Count 133 K/mcL (140-400); Red Blood Count 3.06 M/mcL (3.82-4.97); Red Cell Distribution Width 18.6 % (11.5-14.5); White Blood Count 9.6 K/mcL (4.3-11.1)
[2021-05-05 04:03] LABS: BUN/Creatinine Ratio 34 (6-26); Blood Urea Nitrogen 25 mg/dL (6-20); Calcium 7.3 mg/dL (8.6-10.3); Carbon Dioxide 19 mEq/L (23-29); Chloride 105 mEq/L (98-107); Glucose 65 mg/dL (70-105); Magnesium 1.8 mg/dL (1.6-2.6); Osmolality,Calculated 273 (280-300); Phosphorous 4.2 mg/dL (2.7-4.5); Potassium 3.7 mEq/L (3.5-5.1); Sodium 130 mEq/L (136-145); eGFR For African Americans > 60 (> 60); eGFR For Non-African Americans > 60 (> 60)
[2021-05-05] MEDS: Colistin (Colistimethate) 150 MG in 0.9 % Sodium Chloride 50 ML IVPB SCH ×2 (04:10→17:25)
[2021-05-05] MEDS: Gabapentin 400 MG CAPSULE PO SCH ×4 (08:20→19:55)
[2021-05-05] MEDS: *HR* OxyCODONE ER (12 HR) 10 MG TABLET PO SCH ×2 (08:21→17:26)
[2021-05-05] MEDS: Insulin LISPRO 300 UNITS/3 ML VIAL SUBQ SCH ×4 (08:21→19:57)
[2021-05-05] MEDS: Loratadine 10 MG TABLET PO SCH (08:21)
[2021-05-05] MEDS: FLUoxetine 20 MG CAPSULE PO SCH (08:21)
[2021-05-05] MEDS: diazePAM 2 MG TABLET PO SCH ×4 (08:22→20:00)
[2021-05-05] MEDS: D5% in 0.45% NACL 1,000 ML IVC SCH (15:50)
[2021-05-05] MEDS ORDERED: Ertapenem 1,000 MG in 0.9 % Sodium Chloride Mini Bag 100 ML IVPB SCH (17:00)
[2021-05-06] MEDS: Norepinephrine 4 MG/254 ML IV.SOLN IVC SCH (02:33)
[2021-05-06] MEDS: D5% in 0.45% NACL 1,000 ML IVC SCH ×2 (04:32→16:41)
[2021-05-06] MEDS: Colistin (Colistimethate) 150 MG in 0.9 % Sodium Chloride 50 ML IVPB SCH ×2 (04:32→16:31)
[2021-05-06] MEDS: *HR* OxyCODONE ER (12 HR) 10 MG TABLET PO SCH ×2 (05:58→16:41)
[2021-05-06 06:51] LABS: Eosinophils # 0.1 K/mcL (0.0-0.6); Hemoglobin 6.9 g/dL (11.5-15.4); Immature Granulocytes % 0.5 % (0-4); Lymphocytes # 1.4 K/mcL (0.6-4.6); Lymphocytes % 21.1 %; Mean Corpuscular HGB Conc 31.4 g/dL (31.6-35.5); Mean Corpuscular Hemoglobin 26.8 pg (28.0-33.3); Mean Corpuscular Volume 85.6 fL (83.0-100.0); Monocytes # 0.3 K/mcL (0.0-1.3); Monocytes % 4.4 %; Neutrophils # 4.8 K/mcL (1.6-8.9); Platelet Count 100 K/mcL (140-400); Red Blood Count 2.57 M/mcL (3.82-4.97); Red Cell Distribution Width 18.9 % (11.5-14.5); White Blood Count 6.6 K/mcL (4.3-11.1)
[2021-05-06 06:53] LABS: BUN/Creatinine Ratio 35 (6-26); Blood Urea Nitrogen 26 mg/dL (6-20); Calcium 7.1 mg/dL (8.6-10.3); Carbon Dioxide 18 mEq/L (23-29); Chloride 107 mEq/L (98-107); Glucose 52 mg/dL (70-105); Osmolality,Calculated 274 (280-300); Potassium 3.5 mEq/L (3.5-5.1); Sodium 131 mEq/L (136-145); eGFR For African Americans > 60 (> 60); eGFR For Non-African Americans > 60 (> 60)
[2021-05-06] MEDS: Loratadine 10 MG TABLET PO SCH (07:33)
[2021-05-06] MEDS: Gabapentin 400 MG CAPSULE PO SCH ×2 (07:33→12:39)
[2021-05-06] MEDS: FLUoxetine 20 MG CAPSULE PO SCH (07:34)
[2021-05-06] MEDS: diazePAM 2 MG TABLET PO SCH ×4 (07:34→22:46)
[2021-05-06] MEDS: Insulin LISPRO 300 UNITS/3 ML VIAL SUBQ SCH ×4 (07:51→22:51)
[2021-05-06] MEDS ORDERED: Sennosides 8.6 MG TABLET PO PRN (14:50)
[2021-05-06] MEDS ORDERED: D5% in Water 1,000 ML IVC PRN (14:50)
[2021-05-06] MEDS ORDERED: Nicotine 21 MG PATCH.TD24 TD PRN (14:50)
[2021-05-06] MEDS ORDERED: Naloxone 0.4 MG/ML INJ IVP PRN (14:50)
[2021-05-06] MEDS ORDERED: Dextrose Gel 15 GM/37.5 ML TUBE PO PRN ×2 (14:50)
[2021-05-06] MEDS: Ertapenem 1,000 MG in 0.9 % Sodium Chloride Mini Bag 100 ML IVPB SCH (16:41)
[2021-05-06] MEDS: *HR* Dextrose 50 % in Water (Vial) 50 ML VIAL IVP PRN (16:41)
[2021-05-07] MEDS: D5% in 0.45% NACL 1,000 ML IVC SCH (02:50)
[2021-05-07] MEDS: Colistin (Colistimethate) 150 MG in 0.9 % Sodium Chloride 50 ML IVPB SCH ×2 (05:30→17:18)
[2021-05-07] MEDS: *HR* OxyCODONE ER (12 HR) 10 MG TABLET PO SCH ×2 (05:38→18:26)
[2021-05-07] MEDS: *HR* Dextrose 50 % in Water (Vial) 50 ML VIAL IVP PRN ×3 (08:00→22:24)
[2021-05-07] MEDS: Insulin LISPRO 300 UNITS/3 ML VIAL SUBQ SCH ×4 (08:15→21:30)
[2021-05-07] MEDS: Loratadine 10 MG TABLET PO SCH (10:58)
[2021-05-07] MEDS: diazePAM 2 MG TABLET PO SCH ×4 (10:59→21:47)
[2021-05-07] MEDS: FLUoxetine 20 MG CAPSULE PO SCH (10:59)
[2021-05-07 13:11] LABS: Eosinophils % 1.6 %; Red Cell Distribution Width 18.6 % (11.5-14.5)
[2021-05-07 13:13] LABS: Eosinophils # 0.1 K/mcL (0.0-0.6); Hematocrit 21.4 % (35.3-44.9); Hemoglobin 6.5 g/dL (11.5-15.4); Immature Granulocytes % 0.4 % (0-4); Immature Platelets 6.3 % (1.1-6.1); Lymphocytes # 1.1 K/mcL (0.6-4.6); Mean Corpuscular HGB Conc 30.4 g/dL (31.6-35.5); Mean Corpuscular Hemoglobin 26.1 pg (28.0-33.3); Mean Corpuscular Volume 85.9 fL (83.0-100.0); Mean Platelet Volume 10.7 fL (9.4-12.4); Monocytes # 0.2 K/mcL (0.0-1.3); Monocytes % 3.8 %; Neutrophils # 3.7 K/mcL (1.6-8.9); Red Blood Count 2.49 M/mcL (3.82-4.97); Segmented Neutrophils % 72.2 %; White Blood Count 5.1 K/mcL (4.3-11.1)
[2021-05-07 13:16] LABS: Platelet Count 72 K/mcL (140-400)
[2021-05-07 13:31] LABS: BUN/Creatinine Ratio 38 (6-26); Blood Urea Nitrogen 26 mg/dL (6-20); Calcium 6.8 mg/dL (8.6-10.3); Carbon Dioxide 18 mEq/L (23-29); Chloride 106 mEq/L (98-107); Glucose 65 mg/dL (70-105); Osmolality,Calculated 271 (280-300); Potassium 3.2 mEq/L (3.5-5.1); Sodium 129 mEq/L (136-145); eGFR For African Americans > 60 (> 60); eGFR For Non-African Americans > 60 (> 60)
[2021-05-07] MEDS ORDERED: 0.9 % Sodium Chloride 1,000 ML IVC SCH (15:15)
[2021-05-07] MEDS: D5% in 0.9% NACL 1,000 ML IVC SCH (16:21)
[2021-05-07] MEDS: Ertapenem 1,000 MG in 0.9 % Sodium Chloride Mini Bag 100 ML IVPB SCH (17:21)
[2021-05-07] MEDS ORDERED: 0.9 % Sodium Chloride 250 ML ONE (18:11)
[2021-05-07 22:36] LABS: Hematocrit 26.1 % (35.3-44.9)
[2021-05-07 22:42] LABS: Hemoglobin 8.2 g/dL (11.5-15.4)
[2021-05-08] MEDS ORDERED: *HR* OxyCODONE/APAP 10/325 TABLET PO ONE (00:15)
[2021-05-08] MEDS: D5% in 0.9% NACL 1,000 ML IVC SCH ×3 (00:46→16:45)
[2021-05-08] MEDS: *HR* Dextrose 50 % in Water (Vial) 50 ML VIAL IVP PRN ×2 (03:17→23:47)
[2021-05-08] MEDS: Colistin (Colistimethate) 150 MG in 0.9 % Sodium Chloride 50 ML IVPB SCH ×2 (05:08→16:23)
[2021-05-08 06:17] LABS: Hematocrit 26.4 % (35.3-44.9); Hemoglobin 8.3 g/dL (11.5-15.4); Mean Corpuscular HGB Conc 31.4 g/dL (31.6-35.5); Mean Corpuscular Hemoglobin 27.2 pg (28.0-33.3); Mean Corpuscular Volume 86.6 fL (83.0-100.0); Mean Platelet Volume 10.6 fL (9.4-12.4); Red Blood Count 3.05 M/mcL (3.82-4.97); Red Cell Distribution Width 17.7 % (11.5-14.5); White Blood Count 5.9 K/mcL (4.3-11.1)
[2021-05-08 06:19] LABS: Platelet Count 62 K/mcL (140-400)
[2021-05-08 06:35] LABS: BUN/Creatinine Ratio 35 (6-26); Blood Urea Nitrogen 26 mg/dL (6-20); Calcium 6.8 mg/dL (8.6-10.3); Carbon Dioxide 16 mEq/L (23-29); Chloride 109 mEq/L (98-107); Glucose 66 mg/dL (70-105); Osmolality,Calculated 277 (280-300); Potassium 3.2 mEq/L (3.5-5.1); Sodium 132 mEq/L (136-145); eGFR For African Americans > 60 (> 60); eGFR For Non-African Americans > 60 (> 60)
[2021-05-08] MEDS ORDERED: Calcium Gluconate 1gm/50mL 1 GM/50 ML BAG IVPB ONE (07:22)
[2021-05-08] MEDS: *HR* OxyCODONE ER (12 HR) 10 MG TABLET PO SCH ×2 (08:09→16:22)
[2021-05-08] MEDS: Insulin LISPRO 300 UNITS/3 ML VIAL SUBQ SCH ×4 (09:09→20:34)
[2021-05-08] MEDS: FLUoxetine 20 MG CAPSULE PO SCH (09:38)
[2021-05-08] MEDS: diazePAM 2 MG TABLET PO SCH ×4 (09:38→20:41)
[2021-05-08] MEDS: Loratadine 10 MG TABLET PO SCH (09:39)
[2021-05-08] MEDS ORDERED: Potassium Chloride 40 MEQ, Lidocaine 1% 2 ML in 0.9 % Sodium Chloride 500 ML IVPB ONE (10:02)
[2021-05-08] MEDS: Ertapenem 1,000 MG in 0.9 % Sodium Chloride Mini Bag 100 ML IVPB SCH (16:23)
[2021-05-09] MEDS: D5% in 0.9% NACL 1,000 ML IVC SCH ×3 (02:52→13:10)
[2021-05-09 03:30] LABS: Red Blood Count 2.94 M/mcL (3.82-4.97); Red Cell Distribution Width 17.8 % (11.5-14.5)
[2021-05-09 03:33] LABS: Eosinophils # 0.1 K/mcL (0.0-0.6); Hematocrit 25.1 % (35.3-44.9); Immature Granulocytes % 0.4 % (0-4); Immature Platelets 4.8 % (1.1-6.1); Lymphocytes % 18.5 %; Mean Corpuscular HGB Conc 31.9 g/dL (31.6-35.5); Mean Corpuscular Hemoglobin 27.2 pg (28.0-33.3); Mean Corpuscular Volume 85.4 fL (83.0-100.0); Mean Platelet Volume 10.9 fL (9.4-12.4); Monocytes # 0.2 K/mcL (0.0-1.3); Monocytes % 3.7 %; Neutrophils # 4.1 K/mcL (1.6-8.9); Segmented Neutrophils % 75.4 %; White Blood Count 5.4 K/mcL (4.3-11.1)
[2021-05-09 03:45] LABS: Alanine Aminotransferase 4 Units/L (7-52); Albumin 1.5 g/dL (3.5-5.7); Albumin/Globulin Ratio 0.5 (1.1-2.2); Alkaline Phosphatase 95 Units/L (34-104); Aspartate Amino Transferase 14 Units/L (13-39); BUN/Creatinine Ratio 40 (6-26); Bilirubin,Total 0.2 mg/dL (0.3-1.0); Blood Urea Nitrogen 27 mg/dL (6-20); Calcium 6.9 mg/dL (8.6-10.3); Carbon Dioxide 16 mEq/L (23-29); Chloride 113 mEq/L (98-107); Globulin 2.8 g/dL (2.4-3.5); Glucose 81 mg/dL (70-105); Osmolality,Calculated 284 (280-300); Potassium 3.5 mEq/L (3.5-5.1); Sodium 135 mEq/L (136-145); Total Protein 4.3 g/dL (6.4-8.9); eGFR For African Americans > 60 (> 60); eGFR For Non-African Americans > 60 (> 60)
[2021-05-09 03:54] LABS: Platelet Count 59 K/mcL (140-400)
[2021-05-09 04:00] LABS: Thyroid Stimulating Hormone 15.488 mcIU/mL (0.340-5.600)
[2021-05-09 04:16] LABS: Anisocytosis 1+ (Not Present); Platelet Estimate Decreased (Normal)
[2021-05-09] MEDS: Colistin (Colistimethate) 150 MG in 0.9 % Sodium Chloride 50 ML IVPB SCH (04:30)
[2021-05-09] MEDS: Insulin LISPRO 300 UNITS/3 ML VIAL SUBQ SCH ×2 (08:10→14:27)
[2021-05-09] MEDS: diazePAM 2 MG TABLET PO SCH ×3 (08:54→14:27)
[2021-05-09] MEDS: *HR* OxyCODONE ER (12 HR) 10 MG TABLET PO SCH ×2 (08:54→09:05)
[2021-05-09] MEDS: Loratadine 10 MG TABLET PO SCH (08:54)
[2021-05-09] MEDS: FLUoxetine 20 MG CAPSULE PO SCH (08:55)
[2021-05-09] MEDS ORDERED: 0.9 % Sodium Chloride 1,000 ML IVC ONE (09:05)
[2021-05-09] MEDS ORDERED: 0.9 % Sodium Chloride 500 ML IVC ONE (10:00)
[2021-05-09 10:25] LABS: Hematocrit 19.4 % (35.3-44.9); Immature Platelets 5.8 % (1.1-6.1); Mean Corpuscular HGB Conc 30.4 g/dL (31.6-35.5); Mean Corpuscular Hemoglobin 27.2 pg (28.0-33.3); Mean Corpuscular Volume 89.4 fL (83.0-100.0); Mean Platelet Volume 11.2 fL (9.4-12.4); Red Blood Count 2.17 M/mcL (3.82-4.97); Red Cell Distribution Width 18.1 % (11.5-14.5); White Blood Count 4.8 K/mcL (4.3-11.1)
[2021-05-09 10:29] LABS: Platelet Count 39 K/mcL (140-400)
[2021-05-09 10:31] LABS: INR 1.4; Prothrombin Time 16.4 Seconds (9.4-12.1)
[2021-05-09 10:34] LABS: Activated Partial Thrombo Time 58.7 Seconds (26.0-36.0)
[2021-05-09 10:35] LABS: Hemoglobin 5.9 g/dL (11.5-15.4)
[2021-05-09 10:53] LABS: Alanine Aminotransferase 3 Units/L (7-52); Albumin < 1.5 g/dL (3.5-5.7); Alkaline Phosphatase 64 Units/L (34-104); Aspartate Amino Transferase 10 Units/L (13-39); BUN/Creatinine Ratio 42 (6-26); Bilirubin,Indirect 0.1 mg/dL (0.0-1.0); Bilirubin,Total 0.1 mg/dL (0.3-1.0); Blood Urea Nitrogen 22 mg/dL (6-20); Calcium 5.3 mg/dL (8.6-10.3); Carbon Dioxide 14 mEq/L (23-29); Chloride 120 mEq/L (98-107); Glucose 138 mg/dL (70-105); Osmolality,Calculated 294 (280-300); Potassium 2.7 mEq/L (3.5-5.1); Sodium 139 mEq/L (136-145); Total Protein 3.1 g/dL (6.4-8.9); eGFR For African Americans > 60 (> 60); eGFR For Non-African Americans > 60 (> 60)
[2021-05-09] MEDS ORDERED: Norepinephrine 4 MG/254 ML IV.SOLN IVC SCH (11:30)
[2021-05-09 11:46] LABS: Lymphocytes # 0.5 K/mcL (0.6-4.6); Neutrophils # 4.3 K/mcL (1.6-8.9)
[2021-05-09 11:49] LABS: Anisocytosis 1+ (Not Present); Platelet Estimate Marked Decrease (Normal)
[2021-05-09 11:50] LABS: Burr Cells 1+ (Not Present)
[2021-05-09] MEDS ORDERED: 0.9 % Sodium Chloride 250 ML ONE (12:14)
[2021-05-09 15:33] LABS: VBG Ionized Calcium 1.18 mmol/L (1.15-1.35)
[2021-05-09] MEDS ORDERED: Atropine 1% Opth Drops 100 DROP/5 ML BOTTLE SL PRN ×2 (16:14→17:45)
[2021-05-09] MEDS ORDERED: *HR* LORazepam 2 MG/ML VIAL IVP PRN ×2 (16:14→17:45)
[2021-05-09] MEDS ORDERED: Morphine Sulfate 2 MG/ML SYRINGE IVP PRN (16:14)
[2021-05-09] MEDS ORDERED: Bisacodyl 10 MG RECTAL SUPPOSITORY RC PRN ×2 (16:16→17:45)
[2021-05-09 16:27] LABS: Alanine Aminotransferase 4 Units/L (7-52); Albumin 1.6 g/dL (3.5-5.7); Albumin/Globulin Ratio 0.5 (1.1-2.2); Alkaline Phosphatase 102 Units/L (34-104); Aspartate Amino Transferase 21 Units/L (13-39); BUN/Creatinine Ratio 39 (6-26); Bilirubin,Total 0.5 mg/dL (0.3-1.0); Blood Urea Nitrogen 26 mg/dL (6-20); Calcium 6.7 mg/dL (8.6-10.3); Carbon Dioxide 15 mEq/L (23-29); Chloride 114 mEq/L (98-107); Glucose 99 mg/dL (70-105); Magnesium 1.3 mg/dL (1.6-2.6); Osmolality,Calculated 287 (280-300); Phosphorous 5.1 mg/dL (2.7-4.5); Potassium 3.4 mEq/L (3.5-5.1); Sodium 136 mEq/L (136-145); Total Protein 4.6 g/dL (6.4-8.9); eGFR For African Americans > 60 (> 60); eGFR For Non-African Americans > 60 (> 60)
[2021-05-09] MEDS ORDERED: Nicotine 21 MG PATCH.TD24 TD PRN (17:45)
[2021-05-09] MEDS: Morphine Sulfate 2 MG/ML SYRINGE IVP PRN ×2 (18:36→21:41)
[2021-05-10] MEDS: Insulin LISPRO 300 UNITS/3 ML VIAL SUBQ SCH (04:57)
[2021-05-10] MEDS: diazePAM 2 MG TABLET PO SCH (04:58)
[2021-05-10 06:31] VITALS: BP 80/50
[2021-05-10] MEDS ORDERED: Morphine Sulfate Oral CONC 10 MG/0.5 ML ORAL.SYG SL SCH (12:00)
== END 2021-05-10 10:36 | disposition expired | DRG 720 ==
LOC: EMEROOARM 22:36 → ICNU 05-01 04:40 → SUATTDRO 05-01 04:40 → ICNU 05-01 05:54 → 2ANU 05-06 18:36 → ICNU 05-09 12:14 → 2ANU 05-09 18:17
PROVIDERS: ADMIT Internal Medicine; ATTEND Internal Medicine